=== PATIENT | male | born 1945 | race Caucasian/White ===

== ENCOUNTER 2022-02-02 01:27 | Day surgery (SDC) | payer MEDICARE, SELFPAY ==
[2022-01-24 15:36] VITALS: BMI 26.5
--- NOTE | 2022-02-01 16:15 | PM.HPGS ---
History of Present Illness History of Present Illness Consent: Risks, benefits, and alternatives have been discussed and questions answered. Patient agrees to proceed with procedure. Chief complaint: hx of colon polyps Narrative: Jorge Bonilla is a 76 year old male referred for colon cancer screening. His last colonoscopy was 10 years ago. Review of Systems Review of Systems: All systems reviewed & are unremarkable except as noted in HPI and below PMFSH Social History Social History Smoking status: Never smoker Alcohol intake: current Substance use: never Substance use type: does not use Living arrangements: with family Spiritual care concerns: No Meds Home Medications and Allergies Home Medications Medication Instructions Recorded Confirmed Type Adult Probiotic 1 tab-cap PO DAILY 01/24/22 01/24/22 History aspirin 81 mg tablet 81 mg PO DAILY 01/24/22 01/24/22 History atorvastatin 40 mg tablet 40 mg PO DAILY 01/24/22 01/24/22 History clopidogrel 75 mg tablet 75 mg PO DAILY 01/24/22 01/24/22 History diphenhydramine 25 2 tablet PO HS 01/24/22 01/24/22 History mg-acetaminophen 500 mg tablet (Acetaminophen PM) lisinopril 2.5 mg tablet 2.5 mg PO DAILY 01/24/22 01/24/22 History loratadine 10 mg tablet 10 mg PO DAILY 01/24/22 01/24/22 History meloxicam 15 mg tablet 15 mg PO DAILY 01/24/22 01/24/22 History metformin 500 mg tablet 500 mg PO BID 01/24/22 01/24/22 History metoprolol succinate 25 mg 25 mg PO DAILY 01/24/22 01/24/22 History tablet,extended release 24 hr pantoprazole 40 mg tablet,delayed 40 mg PO DAILY 01/24/22 01/24/22 History release pregabalin 75 mg capsule 75 mg PO BID 01/24/22 01/24/22 History tamsulosin 0.4 mg capsule 0.4 mg PO HS 01/24/22 01/24/22 History tramadol 50 mg tablet 50 mg PO BID PRN Pain 01/24/22 01/24/22 History Allergies Allergy/AdvReac Type Severity Reaction Status Date / Time No Known Allergies Allergy Verified 02/02/22 06:50 Exam Resp: Auscultation: clear to auscultation bilaterally Cardio: Rate: regular rate Rhythm: regular rhythm GI: GI Palp: Yes Soft to palpation and No Tenderness to palpation present (GI) Assessment and Plan Assessment and plan (1) Colon cancer screening: Code(s): Z12.11 - Encounter for screening for malignant neoplasm of colon Status: Acute Assessment and Plan: Colonoscopy with possible biopsy or polypectomy or cautery or injection of substances.
[2022-02-02 06:51] VITALS: BP 135/57; PULSE 82; RESP 18; TEMP 36.1; O2SAT 99; BMI 26.6
[2022-02-02] MEDS: LACTATED RINGERS 1,000 ML 150 ML IV CONT (07:06)
[2022-02-02 07:10] LABS: Glucose Point of Care 116 mg/dl (65-105)
--- NOTE | 2022-02-02 07:43 | WPDANESEPPF ---
Anes - Initial Pre Proc Eval Procedure: Operation Date: 02/02/22 08:00 Proposed Procedures p Screening Colonoscopy - Oseas Sheridan MD Date/Time: 02/02/22 07:43 Surgeon: Oseas Sheridan MD Pre Op Diagnosis: hx of colon polyps Patient Data Age: 76 Gender: M Height: 1.78 m Weight: 84.2 kg Last Vital Signs Temp 97 F L 02/02/22 06:51 Pulse 82 02/02/22 06:51 Resp 18 02/02/22 06:51 BP 135/57 L 02/02/22 06:51 Pulse Ox 99 02/02/22 06:51 O2 Del Method Room Air 02/02/22 06:51 Allergies Allergy/AdvReac Type Severity Reaction Status Date / Time No Known Allergies Allergy Verified 02/02/22 06:50 Home Medications Medication Instructions Recorded Confirmed Type Adult Probiotic 1 tab-cap PO DAILY 01/24/22 01/24/22 History aspirin 81 mg tablet 81 mg PO DAILY 01/24/22 01/24/22 History atorvastatin 40 mg tablet 40 mg PO DAILY 01/24/22 01/24/22 History clopidogrel 75 mg tablet 75 mg PO DAILY 01/24/22 01/24/22 History diphenhydramine 25 2 tablet PO HS 01/24/22 01/24/22 History mg-acetaminophen 500 mg tablet (Acetaminophen PM) lisinopril 2.5 mg tablet 2.5 mg PO DAILY 01/24/22 01/24/22 History loratadine 10 mg tablet 10 mg PO DAILY 01/24/22 01/24/22 History meloxicam 15 mg tablet 15 mg PO DAILY 01/24/22 01/24/22 History metformin 500 mg tablet 500 mg PO BID 01/24/22 01/24/22 History metoprolol succinate 25 mg 25 mg PO DAILY 01/24/22 01/24/22 History tablet,extended release 24 hr pantoprazole 40 mg tablet,delayed 40 mg PO DAILY 01/24/22 01/24/22 History release pregabalin 75 mg capsule 75 mg PO BID 01/24/22 01/24/22 History tamsulosin 0.4 mg capsule 0.4 mg PO HS 01/24/22 01/24/22 History tramadol 50 mg tablet 50 mg PO BID PRN Pain 01/24/22 01/24/22 History Laboratory Tests 02/02/22 07:05 POC Capillary Glucose 116 mg/dl H mg/dl (65-105) Patient hx anesthesia problems: none Family hx anesthesia problems: none Results Review: All pre-operative results and documents have been reviewed as part of the pre-operative evaluation. [facility] Social History Social History Smoking status: Never smoker Alcohol intake: current Substance use: never Substance use type: does not use Living arrangements: with family Spiritual care concerns: No Anes - Eval Final PreProcedure Day of Procedure 02/02/22 07:43 Patient weight: normal Heart: regular rate and rhythm Lungs: clear to auscultation Airway: Mallampati scale class II Neurological: alert and oriented Last oral intake: >/= 8 hours ASA classification: III Emergent: no Anesthetic plan: proceed Anesthesia type and monitoring: general GIVS and standard monitoring Results Review: All pre-operative results and documents have been reviewed as part of the pre-operative evaluation. Informed Consent: The patient's anesthetic plan and its attendant risks and benefits were discussed with the patient/family/POA. Questions were solicited and answers provided to the satisfaction of the patient/family/POA.
[2022-02-02 08:13] VITALS: BP 102/57; PULSE 78; RESP 22; O2SAT 99
[2022-02-02 08:23] VITALS: BP 114/68; PULSE 65; RESP 16; O2SAT 99
[2022-02-02 08:33] VITALS: BP 110/68; PULSE 69; RESP 16; O2SAT 100
== END 2022-02-02 08:52 | disposition home or self-care (01) ==
PROVIDERS: PCP Nurse Practitioner Family; Visit Provider Internal Medicine Gastroenterology
PROC: 0DJD8ZZ Inspection of Lower Intestinal Tract, Via Natural or Artificial Opening Endoscopic (ICD-10-PCS; CPT 45378; principal; 2022-02-02 08:00)
DX: Z12.11 Encounter for screening for malignant neoplasm of colon (principal); K62.1 Rectal polyp; K57.30 Diverticulosis of large intestine without perforation or abscess without bleeding; Z79.899 Other long term (current) drug therapy
CPT/HCPCS: 45380; 82948; 88305; J2704; J7120

== ENCOUNTER 2024-09-02 15:35 | Emergency (ER) | payer MEDICARE, SELFPAY ==
[2024-09-02] VITALS (12 sets, daily range): BP systolic 119–138; BP diastolic 57–91; PULSE 70–84; RESP 10–18; TEMP 36.8; O2SAT 96–100
--- NOTE | ~2024-09-02 | CT_ITS ---
CLINICAL INDICATION: Left lower quadrant tenderness COMPARISON: None. TECHNIQUE: Multiple contiguous axial images of the abdomen and pelvis were performed following the ad ministration of with 100 mL Omnipaque-350 intravenous contrast The dose-length product (DLP) was 631.89 mGy-cm. Automated exposure control and iterative reconstruction technique were employed. FINDINGS/OBSERVATIONS: Visualized lower thorax: The bilateral lung bases are clear. The heart is of normal size, without pericardial effusion. Small hiatal hernia is present. Liver: The liver demonstrates homogeneous enhancement and is not enlarged. Gallbladder and biliary system: The gallbladder is surgically absent. Pancreas: The pancreas enhances homogeneously without ductal dilatation. Spleen: The spleen enhances homogeneously and is not enlarged. Kidneys: The bilateral kidneys enhance symmetrically without hydronephrosis or renal calculi. Adrenal glands: Unremarkable. Gastrointestinal tract: Colonic diverticulosis without significant surrounding inflammatory change. Appendix: The appendix is not definitively visualized. However, no pericecal inflammatory change is identified suggest the presence of acute appendicitis. Vasculature: Unremarkable. Lymph nodes: No pathologically enlarged or morphologically suspicious lymph nodes within the retroperitoneum or at the root of the mesentery. Pelvic structures: The bladder is distended, and otherwise unremarkable. The prostate gland is minimally enlarged. Body wall and musculoskeletal: Small complex fat-containing umbilical hernia. Fat-containing left inguinal hernia. Age-appropriate degenerative disease within the lumbar spine. IMPRESSION: Fat-containing left inguinal hernia. Complex fat-containing umbilical hernia. Otherwise, unremarkable CT examination of the abdomen and pelvis, as detailed above. Reviewed, dictated and finalized at location A. IMPRESSION: Fat-containing left inguinal hernia. Complex fat-containing umbilical hernia. Otherwise, unremarkable CT examination of the abdomen and pelvis, as detailed nancy vasquez.
--- NOTE | 2024-09-02 16:54 | ED_ITS ---
HPI - Abdominal Pain General Chief Complaint: Abdominal Pain <NITA Francis Last Filed: 09/03/24 09:35> Stated Complaint: Abd pain-poss Pancreatitis flare <NITA Francis Last Filed: 09/03/24 09:35> Time Seen by Provider: 09/02/24 16:54 <NITA Francis Last Filed: 09/03/24 09:35> Focused HPI: This is a 79 year old male that presents to the ER for possible pancreatitis flare. Reports he has had symptoms over the last week. Reports epigastric pain, previous history of same. Reports some diarrhea. Denies fever, shortness of breath, vomiting. GENERAL: Well-appearing, well-nourished, and in no acute distress. HEAD: Normocephalic, atraumatic. CHEST: Clear to auscultation. ?No respiratory distress. HEART: Regular rate and rhythm.? NEURO: ?Alert and oriented x3. Patient screened in triage and initial orders placed.? ?Additional care and disposition to be based upon?diagnostic testing and treatment. <Renée Julien PA-C - Last Filed: 09/03/24 09:35> Focused HPI: This is a 79 year old male that presents to the ER for possible pancreatitis flare. Reports he has had symptoms over the last week. Reports epigastric pain, previous history of same. Reports some diarrhea. Denies fever, shortness of breath, vomiting. GENERAL: Well-appearing, well-nourished, and in no acute distress. HEAD: Normocephalic, atraumatic. CHEST: Clear to auscultation. ?No respiratory distress. HEART: Regular rate and rhythm.? NEURO: ?Alert and oriented x3. Patient screened in triage and initial orders placed.? ?Additional care and disposition to be based upon?diagnostic testing and treatment. <NITA Woods Last Filed: 09/02/24 19:41> Source: patient <NITA Woods Last Filed: 09/02/24 19:41> Mode of arrival: ambulatory <NITA Woods Last Filed: 09/02/24 19:41> Limitations: no limitations <Sarah Platt PA-C - Last Filed: 09/02/24 19:41> History of Present Illness HPI narrative: Agree with above HPI. States pain seem to be improved today. Reports pain is somewhat worse with movement, denies worsening with eating. Patient does not know why he has had pancreatitis in the past. Denies history of EtOH use. History of cholecystectomy. Denies CP/SOB. <Sarah Platt PA-C - Last Filed: 09/02/24 19:41> Related Data Home Medications: Home Medications ?Medication ?Instructions ?Recorded ?Confirmed ?Last Taken ?Type Adult Probiotic 1 tab-cap PO DAILY 01/24/22 01/24/22 Unknown History aspirin 81 mg tablet 81 mg PO DAILY 01/24/22 01/24/22 Unknown History atorvastatin 40 mg tablet 40 mg PO DAILY 01/24/22 01/24/22 Unknown History clopidogrel 75 mg tablet 75 mg PO DAILY 01/24/22 01/24/22 Unknown History diphenhydramine 25 2 tablet PO HS 01/24/22 01/24/22 Unknown History mg-acetaminophen 500 mg tablet (Acetaminophen PM) lisinopril 2.5 mg tablet 2.5 mg PO DAILY 01/24/22 01/24/22 Unknown History loratadine 10 mg tablet 10 mg PO DAILY 01/24/22 01/24/22 Unknown History meloxicam 15 mg tablet 15 mg PO DAILY 01/24/22 01/24/22 Unknown History metformin 500 mg tablet 500 mg PO BID 01/24/22 01/24/22 Unknown History metoprolol succinate 25 mg 25 mg PO DAILY 01/24/22 01/24/22 Unknown History tablet,extended release 24 hr pantoprazole 40 mg tablet,delayed 40 mg PO DAILY 01/24/22 01/24/22 Unknown History release pregabalin 75 mg capsule 75 mg PO BID 01/24/22 01/24/22 Unknown History tamsulosin 0.4 mg capsule 0.4 mg PO HS 01/24/22 01/24/22 Unknown History tramadol 50 mg tablet 50 mg PO BID PRN Pain 01/24/22 01/24/22 Unknown History <Renée Julien PA-C - Last Filed: 09/03/24 09:35> Allergies/Adverse Reactions: Allergies Allergy/AdvReac Type Severity Reaction Status Date / Time No Known Allergies Allergy Verified 09/02/24 15:36 <Renée Julien PA-C - Last Filed: 09/03/24 09:35> Review of Systems 2 Review of Systems: All systems reviewed & are unremarkable except as noted in HPI. <Sarah Platt PA-C - Last Filed: 09/02/24 19:41> All systems reviewed & are unremarkable except as noted in HPI and below < Sarah Platt PA-C - Last Filed: 09/02/24 19:41> PMFSH Past Medical History Medical History: Medical History History of hyperlipidemia History of hypertension <Renée Julien PA-C - Last Filed: 09/03/24 09:35> Social History Social History: Social History Smoking status: Never smoker Alcohol intake: current Substance use: never Substance use type: does not use Living arrangements: with family Spiritual care concerns: No <Renée Julien PA-C - Last Filed: 09/03/24 09:35> Exam 2 Narrative: GENERAL: Elderly but well appearing, well-nourished, non-toxic, in no acute distress. HEAD: Normocephalic, atraumatic. RESPIRATORY: Airway patent, respirations nonlabored. Clear to auscultation bilaterally, no rales, rhonchi, wheezing. CARDIOVASCULAR: Regular rate and rhythm without murmurs, rubs, or gallops. ABDOMINAL: Soft, mild TTP in LLQ/L mid abdomen, nondistended. Normoactive BS. MUSCULOSKELETAL: Moves all extremities. No gross deformities. SKIN: Warm, dry, normal color. NEURO: A&O X3. Speech clear. Cranial nerves II-XII grossly intact. Steady gait. No ataxic movements. PSYCHIATRIC: Appropriate mood and affect. Normal interaction. <Sarah Platt PA-C - Last Filed: 09/02/24 19:41> Course Vital Signs Vital signs: Vital Signs Temperature 98.2 F 09/02/24 15:55 Pulse Rate 84 09/02/24 15:55 Respiratory Rate 16 09/02/24 15:55 Blood Pressure 122/64 09/02/24 15:55 Pulse Oximetry 96 09/02/24 15:55 Oxygen Delivery Room Air 09/02/24 15:55 Temperature 98.2 F 09/02/24 15:55 Pulse Rate 78 09/02/24 20:15 Respiratory Rate 16 09/02/24 20:15 Blood Pressure 119/61 09/02/24 20:15 Pulse Oximetry 97 09/02/24 20:15 Oxygen Delivery Room Air 09/02/24 15:55 <Renée Julien PA-C - Last Filed: 09/03/24 09:35> Vital Signs Temperature 98.2 F 09/02/24 15:55 Pulse Rate 84 09/02/24 15:55 Respiratory Rate 16 09/02/24 15:55 Blood Pressure 122/64 09/02/24 15:55 Pulse Oximetry 96 09/02/24 15:55 Oxygen Delivery Room Air 09/02/24 15:55 Temperature 98.2 F 09/02/24 15:55 Pulse Rate 78 09/02/24 20:15 Respiratory Rate 16 09/02/24 20:15 Blood Pressure 119/61 09/02/24 20:15 Pulse Oximetry 97 09/02/24 20:15 Oxygen Delivery Room Air 09/02/24 15:55 <Sarah Platt PA-C - Last Filed: 09/02/24 19:41> MDM - Abdominal Pain MDM Narrative Medical decision making narrative: Patient presented to ED with mid abdominal pain over the past 1 week, history of pancreatitis. Concerned he was having a recurrent episode of pancreatitis. Denying N/V, pain related to eating, CP, SOB. States pain is improved today, but he contacted his primary care doctor and was referred to the ED for further evaluation. Vital signs are stable. Patient is in no acute distress. Afebrile here. Cbc without leukocytosis. Hemoglobin 12.3. No records to compare to. CMP with anion gap of 13, creatinine 1.34. No records to compare to. LFTs within normal range. Lipase within normal range. UA is clear. No ketones. EKG with incomplete right bundle, no concerning ST changes. Troponin is undetectable. CT of abdomen/pelvis was obtained and showing uncomplicated L inguinal/umbilical hernia w/o any other acute findings. No evidence of strangulation. Both are fat containing, soft, reproducible on exam. Discussed lab and imaging findings with patient. He has remained stable throughout ED stay. Has not required anything for pain. Denying significant ongoing pain. Feel he is safe for discharge home at this time with close outpatient follow-up. Patient takes tramadol at home for chronic pain, advised to continue this/Tylenol as needed for pain. Recommended f/u with PCP for further eval, given strict return precautions. Patient is in agreement this plan. He feels comfortable going home. Discharged in stable condition. <Sarah Platt PA-C - Last Filed: 09/02/24 19:41> Medical Records Attestation: I reviewed the patient's medical records. <NITA Woods Last Filed: 09/02/24 19:41> Lab Data Attestation: I reviewed the patient's lab results. <Sarah Platt PA-C - Last Filed: 09/02/24 19:41> Result diagrams: 09/02/24 17:17 09/02/24 17:17 <Renée Julien PA-C - Last Filed: 09/03/24 09:35> Labs: Lab Results 09/02/24 09/02/24 Range/Units 17:13 17:17 WBC 9.0 (4.5-10.0) K/mm3 RBC 4.48 L (4.6-6.20) M/mm3 Hgb 12.3 L (14.0-18.0) g/dL Hct 38.3 L (42.0-52.0) % MCV 85.5 (80-100) fl MCH 27.5 (26-34) pg MCHC 32.1 (32-36) g/dl RDW 13.5 (11.5-14.5) % Plt Count 351 (150-375) k/mm3 MPV 10.1 (7.4-10.4) fl Immature Gran % (Auto) 0.6 H (0-0.5) % Neut % (Auto) 64.9 (45.5-73.1) % Lymph % (Auto) 18.1 L (18.3-44.2) % [place] % (Auto) 7.7 (2.6-8.5) % Eos % (Auto) 7.7 H (0-4.4) % Baso % (Auto) 1.0 (0.2-1.2) % Lymph # (Auto) 1.63 (0.9-3.2) K/mm3 [place] # (Auto) 0.7 H (0.1-0.6) K/mm3 Eos # (Auto) 0.7 H (0-0.3) K/mm3 Baso # (Auto) 0.1 (0.0-0.1) K/mm3 Abs Immat Gran (auto) 0.05 H (0.00-0.031) K/mm3 Absolute Neuts (auto) 5.9 (1.3-6.7) K/mm3 Absolute Nucleated RBC 0.000 (0.0-0.012) K/mm3 Nucleated RBC % 0.0 (0.0-0.2) % Sodium 137 (137-145) mmol/L Potassium 4.4 (3.4-5.0) mmol/L Chloride 98 (98-107) mmol/L Carbon Dioxide 26 (22-30) mmol/L Anion Gap 13 H (4-12) mmol/L BUN 16 (9-20) mg/dL Creatinine 1.34 H (0.7-1.3) mg/dL Estim Creat Clear Calc 43 ml/min Estimated GFR 52 L (59 - ) Glucose 98 (65-110) mg/dL Calcium 9.2 (8.4-10.2) mg/dL Total Bilirubin 0.4 (0.2-1.3) mg/dL AST 28 (17-59) U/L ALT 34 (6-50) U/L Alkaline Phosphatase 121 (38-126) U/L Troponin I < 0.012 (0.000-0.034) ng/mL Total Protein 8.0 (6.3-8.2) g/dL Albumin 4.5 (3.5-5.1) g/dL Lipase 182 (23-300) U/L Urine Color Yellow (Yellow) Urine Appearance Clear (Clear) Urine pH 5.5 (5.0-9.0) Ur Specific [place] 1.009 (1.001-1.035) Urine Protein Negative (Negative) mg/dL Urine Glucose (UA) Negative (Negative) mg/dL Urine Ketones Negative (Negative) mg/dL Ur Blood (Man) Negative (Negative) Urine Nitrate Negative (Negative) Urine Bilirubin Negative (Negative) Urine Urobilinogen 1.0 (<2.0) mg/dL Leukocyte Esterase Rfl Negative (Negative) [facility] <Renée Julien PA-C - Last Filed: 09/03/24 09:35> Lab Results 09/02/24 09/02/24 Range/Units 17:13 17:17 WBC 9.0 (4.5-10.0) K/mm3 RBC 4.48 L (4.6-6.20) M/mm3 Hgb 12.3 L (14.0-18.0) g/dL Hct 38.3 L (42.0-52.0) % MCV 85.5 (80-100) fl MCH 27.5 (26-34) pg MCHC 32.1 (32-36) g/dl RDW 13.5 (11.5-14.5) % Plt Count 351 (150-375) k/mm3 MPV 10.1 (7.4-10.4) fl Immature Gran % (Auto) 0.6 H (0-0.5) % Neut % (Auto) 64.9 (45.5-73.1) % Lymph % (Auto) 18.1 L (18.3-44.2) % [place] % (Auto) 7.7 (2.6-8.5) % Eos % (Auto) 7.7 H (0-4.4) % Baso % (Auto) 1.0 (0.2-1.2) % Lymph # (Auto) 1.63 (0.9-3.2) K/mm3 [place] # (Auto) 0.7 H (0.1-0.6) K/mm3 Eos # (Auto) 0.7 H (0-0.3) K/mm3 Baso # (Auto) 0.1 (0.0-0.1) K/mm3 Abs Immat Gran (auto) 0.05 H (0.00-0.031) K/mm3 Absolute Neuts (auto) 5.9 (1.3-6.7) K/mm3 Absolute Nucleated RBC 0.000 (0.0-0.012) K/mm3 Nucleated RBC % 0.0 (0.0-0.2) % Sodium 137 (137-145) mmol/L Potassium 4.4 (3.4-5.0) mmol/L Chloride 98 (98-107) mmol/L Carbon Dioxide 26 (22-30) mmol/L Anion Gap 13 H (4-12) mmol/L BUN 16 (9-20) mg/dL Creatinine 1.34 H (0.7-1.3) mg/dL Estim Creat Clear Calc 43 ml/min Estimated GFR 52 L (59 - ) Glucose 98 (65-110) mg/dL Calcium 9.2 (8.4-10.2) mg/dL Total Bilirubin 0.4 (0.2-1.3) mg/dL AST 28 (17-59) U/L ALT 34 (6-50) U/L Alkaline Phosphatase 121 (38-126) U/L Troponin I < 0.012 (0.000-0.034) ng/mL Total Protein 8.0 (6.3-8.2) g/dL Albumin 4.5 (3.5-5.1) g/dL Lipase 182 (23-300) U/L Urine Color Yellow (Yellow) Urine Appearance Clear (Clear) Urine pH 5.5 (5.0-9.0) Ur Specific [place] 1.009 (1.001-1.035) Urine Protein Negative (Negative) mg/dL Urine Glucose (UA) Negative (Negative) mg/dL Urine Ketones Negative (Negative) mg/dL Ur Blood (Man) Negative (Negative) Urine Nitrate Negative (Negative) Urine Bilirubin Negative (Negative) Urine Urobilinogen 1.0 (<2.0) mg/dL Leukocyte Esterase Rfl Negative (Negative) [facility] <Sarah Platt PA-C - Last Filed: 09/02/24 19:41> Imaging Data Attestation: I personally reviewed and interpreted this imaging study as follows: < Sarah Platt PA-C - Last Filed: 09/02/24 19:41> Radiologist's impression: ITS Impressions Abdomen/Pelvis CT 09/02/24 19:19 IMPRESSION: Fat-containing left inguinal hernia. Complex fat-containing umbilical hernia. Otherwise, unremarkable CT examination of the abdomen and pelvis, as detailed above. <NITA Francis Last Filed: 09/03/24 09:35> ITS Impressions Abdomen/Pelvis CT 09/02/24 19:19 IMPRESSION: Fat-containing left inguinal hernia. Complex fat-containing umbilical hernia. Otherwise, unremarkable CT examination of the abdomen and pelvis, as detailed above. <Sarah Platt PA-C - Last Filed: 09/02/24 19:41> ECG Data EKG #1: Attestation: I personally reviewed and interpreted this ECG as follows: <NITA Woods Last Filed: 09/02/24 19:41> ECG completion date: 09/02/24 <NITA Woods Last Filed: 09/02/24 19:41> ECG completion time: 17:23 <NITA Woods Last Filed: 09/02/24 19:41> normal rate (75), sinus rhythm, no ST changes and RBBB (incomplete) <NITA Woods Last Filed: 09/02/24 19:41> Critical Care Time Critical Care Time Critical Care Time: No <NITA Francis Last Filed: 09/03/24 09:35> Discharge Plan Discharge Clinical Impression: Abdominal pain Qualifiers: Abdominal location: epigastric Qualified Code(s): R10.13 - Epigastric pain <NITA Francis Last Filed: 09/03/24 09:35> Patient Disposition: Home <NITA Francis Last Filed: 09/03/24 09:35> Condition: Stable <NITA Francis Last Filed: 09/03/24 09:35> Instructions: Antibiotic Form, Clear Liquid Diet (ED), Abdominal Pain (ED) <NITA Francis Last Filed: 09/03/24 09:35> Additional Instructions: Your workup here was reassuring. There was no evidence of pancreatitis. Continue Tylenol, your home tramadol as needed for pain. Follow-up with your primary care doctor for further evaluation. Return to the ED if you experience worsening or severe pain, unable to keep down food or drink, rectal bleeding, dark black stools, persistent fevers, significant constipation, or any other symptoms of concern. <Renée Julien PA-C - Last Filed: 09/03/24 09:35> Patient Language: Faroese <Renée Julien PA-C - Last Filed: 09/03/24 09:35> Prescriptions: No Action atorvastatin 40 mg tablet 40 mg PO DAILY meloxicam 15 mg tablet 15 mg PO DAILY clopidogrel 75 mg tablet 75 mg PO DAILY tramadol 50 mg tablet 50 mg PO BID PRN (Reason: Pain) tamsulosin 0.4 mg Capsule 0.4 mg PO HS pantoprazole 40 mg tablet,delayed release (DR/EC) 40 mg PO DAILY aspirin 81 mg Tablet 81 mg PO DAILY metoprolol succinate 25 mg tablet extended release 24 hr 25 mg PO DAILY lisinopril 2.5 mg tablet 2.5 mg PO DAILY pregabalin 75 mg capsule 75 mg PO BID Adult Probiotic 1 tab-cap PO DAILY diphenhydramine-acetaminophen [Acetaminophen PM] 25-500 mg Tablet 2 tablet PO HS loratadine 10 mg Tablet 10 mg PO DAILY metformin 500 mg tablet 500 mg PO BID <Renée Julien PA-C - Last Filed: 09/03/24 09:35> Follow-up/Referrals: Gina Isaac APRN [Advanced Practice Nurse] - <Renée Julien PA-C - Last Filed: 09/03/24 09:35> Time of Disposition: 19:37 <Renée Julien PA-C - Last Filed: 09/03/24 09:35> 19:37 <Sarah Platt PA-C - Last Filed: 09/02/24 19:41>
--- NOTE | 2024-09-02 16:55 | ECG_ITS ---
Test Date: 2024-09-02 17:23:31 Measurements Intervals [place] Rate: 75 P: 50 DC: 165 QRS: -6 QRSD: 108 T: 24 QT: 348 QTc: 390 Interpretive Statements SINUS RHYTHM INCOMPLETE RIGHT BUNDLE BRANCH BLOCK BASELINE ARTIFACT- I, II, III, AVR BORDERLINE ECG No previous ECG available for comparison Electronically Signed On 09-02-2024 19:30:42 CDT by Shaun Osullivan D.O.
[2024-09-02 17:27] LABS: Basophils Absolute Auto 0.1 K/mm3 (0.0-0.1); Eosinophils Absolute Auto 0.7 K/mm3 (0-0.3); Eosinophils Percent Auto 7.7 % (0-4.4); Hematocrit 38.3 % (42.0-52.0); Hemoglobin 12.3 g/dL (14.0-18.0); Immature Granulocyte Absolute 0.05 K/mm3 (0.00-0.031); Immature Granulocyte Percent A 0.6 % (0-0.5); Lymphocytes Absolute Auto 1.63 K/mm3 (0.9-3.2); Lymphocytes Percent Auto 18.1 % (18.3-44.2); Mean Corpuscular HGB Conc 32.1 g/dl (32-36); Mean Corpuscular Hemoglobin 27.5 pg (26-34); Mean Corpuscular Volume 85.5 fl (80-100); Mean Platelet Volume 10.1 fl (7.4-10.4); Monocytes Absolute Auto 0.7 K/mm3 (0.1-0.6); Monocytes Percent Auto 7.7 % (2.6-8.5); Neutrophils Absolute Auto 5.9 K/mm3 (1.3-6.7); Neutrophils Percent Auto 64.9 % (45.5-73.1); Platelet Count Result 351 k/mm3 (150-375); Red Blood Count 4.48 M/mm3 (4.6-6.20); Red Cell Distribution Width 13.5 % (11.5-14.5)
[2024-09-02 17:30] LABS: Add Urine Microscopic? NO; Appearance Urine Clear (Clear); Bilirubin Urine Negative (Negative); Blood Urine Negative (Negative); Color Urine Yellow (Yellow); Glucose Urine UA Negative (Negative); Ketones Urine Negative (Negative); Leukocyte Esterase Ur Negative LEU/UL (Negative); Nitrate Urine Negative (Negative); Protein Urine Negative (Negative); Specific Grav Ur 1.009 (1.001-1.035); pH Urine 5.5 (5.0-9.0)
--- OUTSIDE RECORDS SUMMARY | 2024-09-02 17:36 | XMS_ITS | CONTINUITY OF CARE DOCUMENT ---
Author Name tamara mcdonald Address Unknown Organization [facility] Address [address] [facility] [address] [place] [address] Phone [phone] Care Team Providers Care Line Tester Name Role Phone Jalil PRATT, Jose Miguel Delarosa Unavailable [phone] Betty Causey MD Unavailable CORWIN BRYAN MD Unavailable [phone] PROBLEMS Condition Status Date Provider Notes Shortness of breath active Hema Gates RN Pain in limb active Steven Nicole EKG active Jose Miguel Jimenes MD CAD active Jose Miguel Jimenes MD Sleep apnea active Jose Miguel Jimenes MD Hypertension active Jose Miguel Jimenes MD Hyperlipidemia active Jose Miguel Jimenes MD Hx of NSTEMI active Jose Miguel Jimenes MD Dizziness active Jose Miguel Jimenes MD Prediabetes active Jose Miguel Jimenes MD Covid vaccine Moderna active Sunita Mendoza Acute pancreatitis with unin fected necrosis, unspecified active Jose Miguel Jimenes MD Preop cardiovasc. examination active Dariusz Jimenes MD ENCOUNTERS Date Type Provider Location Encounter Diag nosis 5 - 7 In-person encounter Office Visit Jose Miguel Jimenes MD [facility] 4 - 4 In-person encounter Office Visit Jose Miguel Jimenes MD [facility] 2 - 2 In-person encounter Office Visit Jose Miguel Jimenes MD [facility] 5 - 5 In-person encounter Office Visit Jose Miguel Jimenes MD [facility] 3 - 3 In-person encounter Office Visit Jose Miguel Jimenes MD [facility] 7 - 7 In-person encounter Office Visit Jose Migeul Jimenes MD [facility] 6 - 3 In-person encounter Office Visit Jose Miguel Jimenes MD [facility] 2 - 7 In-person encounter Office Visit Jose Miguel Jimenes MD [facility] Acute pancreatitis with uninfected necrosis, unspecifiedPreop cardiovasc. examination 1 - 1 In-person encounter Office Visit Jose Miguel Jimenes MD [facility] Covid vaccine Moderna 9 - 9 In-person encounter Office Visit Jose Miguel Jimenes MD [facility] 0 - 6 In-person encounter Office Visit Jose Miguel Jimenes MD [facility] Prediabetes 2 - 3 In-person encounter Office Visit Jose Miguel Jimenes MD [facility] Dizziness 7 - 7 In-person encounter Office Visit Jose Miguel Jimenes MD [facility] Hx of NSTEMI 2 - 3 In-person encounter Office Visit Jose Miguel Jimenes MD [facility] EKGCADSleep apneaHypertensionHyperlipidemia VITAL SIGNS Date Observation Value Provider Body Mass Index (Ratio) 27.75 kg/m2 Freeman Boyle blood pressure, diastolic 65 mm[Hg] Radha Rodriguez blood pressure, systolic 118 mm[Hg] Yolanda polk Rodriguez oxygen saturation, oximetry 96 % Radha Rodriguez pulse rate 65 /min Radha Rodriguez respiratory rate E&M 12 /min Radha [place] weight E&M 199 [lb_av] Radha Rodriguez height E&M 71 [in_i] Radha [place] blood pressure, cuff size regular Radha ponce [place] Body Mass Index (Ratio) 26.50 kg/m2 Daryn Jimenes MD blood pressure, diastolic 66 mm[Hg] Li nkLogic blood pressure, systolic 114 mm[Hg] Lazara blood pressure, cuff size regular Ke rri Gruenenfdavid blood pressure, diastolic 66 mm[Hg] Martin rri Gruenenfeld blood pressure, systolic 114 mm[Hg] Matthew Allen oxygen saturation, oximetry 95 % Whitley Hong respiratory rate E&M 12 /min Whitley shah pulse rate 69 /min Whitley [facility] weight E&M 190 [lb_av] Whitley [facility] height E&M 71 [in_i] Whitley [facility] Body Mass Index (Ratio) 25.94 kg/m2 Miky Clancy blood pressure, diastolic -1 mm[Hg] Li nkLogic blood pressure, systolic 129 mm[Hg] Lazara kLogic blood pressure, diastolic 65 mm[Hg] Ja rret blood pressure, systolic 129 mm[Hg] Jar ret pulse rate 70 /min David sevilla blood pressure, cuff size regular Ja rret oxygen saturation, oximetry 96 % David respiratory rate E&M 14 /min David weight E&M 186 [lb_av] David y height E&M 71 [in_i] David y Body Mass Index (Ratio) 26.92 kg/m2 Daryn Jimenes MD blood pressure, diastolic 90 mm[Hg] nkLog blood pressure, systolic 123 mm[Hg] [facility] blood pressure, cuff size regular Fa [facility] blood pressure, diastolic 90 mm[Hg] [facility] blood pressure, systolic 123 mm[Hg] [facility], oximetry 97 % [facility] respiratory rate E&M 16 /min Ankita Kristal [facility] pulse rate 73 /min [facility] weight E&M 193 [lb_av] [facility] height E&M 71 [in_i] [facility] Body Mass Index (Ratio) 27.33 kg/m2 Daryn Jimenes MD blood pressure, diastolic 63 mm[Hg] [facility], systolic 123 mm[Hg] Lazara og blood pressure, cuff size regular Milton rret blood pressure, diastolic 63 mm[Hg] Milton rret blood pressure, systolic 123 mm[Hg] Jar ret pulse rate 66 /min David y oxygen saturation, oximetry 98 % David respiratory rate E&M 12 /min David weight E&M 196 [lb_av] David y height E&M 71 [in_i] David y Body Mass Index (Ratio) 27.33 kg/m2 Daryn Jimenes MD blood pressure, diastolic 65 mm[Hg] [facility] Iglesia blood pressure, systolic 121 mm[Hg] Guadalupe peace Iglesia oxygen saturation, oximetry 96 % Kimmy Iglesia pulse rate 75 /min Kimmy Iglesia respiratory rate E&M 18 /min Kimmy Shy mo[place] weight E&M 196 [lb_av] Kimmy Ilgesia height E&M 71 [in_i] Kimmy Iglesia Body Mass Index (Ratio) 27.75 kg/m2 Daryn Jimenes MD blood pressure, cuff size large Ke rri Grueneglynn blood pressure, diastolic 69 mm[Hg] Ke rri Romieuenenfangella blood pressure, systolic 136 mm[Hg] Matthew ri Gely oxygen saturation, oximetry 98 % Whitley Gely respiratory rate E&M 16 /min Whitley G rochelleeneglynn pulse rate 68 /min Whitley Macho lder weight E&M 199 [lb_av] Whitley Gruenenfe lder height E&M 71 [in_i] Whitley Gruenenfe lder Body Mass Index (Ratio) 26.22 kg/m2 Daryn Jimenes MD blood pressure, diastolic 55 mm[Hg] Li nkLogic blood pressure, systolic 116 mm[Hg] Lazara kLogic blood pressure, cuff size large Ta bruce Van blood pressure, diastolic 55 mm[Hg] Ta bruce Van blood pressure, systolic 116 mm[Hg] Sandoval manish Van respiratory rate E&M 14 /min Jasmine Van oxygen saturation, oximetry 96 % [facility] pulse rate 73 /min [facility] weight E&M 188.0 [lb_av] [facility] height E&M 71 [in_i] [facility] Body Mass Index (Ratio) 28.87 kg/m2 Willie Mendoza blood pressure, diastolic 68 mm[Hg] Sa ra Schmid blood pressure, systolic 137 mm[Hg] Jaleesa a Schmid respiratory rate E&M 17 /min Rosalind Si ms oxygen saturation, oximetry 97 % Rosalind Schmid pulse rate 82 /min Rosalind Schmid blood pressure, cuff size regular Sa ra Schmid weight E&M 207 [lb_av] Rosalind Schmid height E&M 71 [in_i] Rosalind Schmid Body Mass Index (Ratio) 28.87 kg/m2 Daryn Jimenes MD blood pressure, cuff size large Ke rri Ankurneglynn blood pressure, diastolic 60 mm[Hg] Ke rri Romieuenenfeldashu blood pressure, systolic 122 mm[Hg] Ker ri Gely oxygen saturation, oximetry 97 % Whitley Hong respiratory rate E&M 14 /min Whitley shah pulse rate 72 /min Whitley Ankurnesang lder weight E&M 207 [lb_av] Whitley Romieuenenfe lder height E&M 71 [in_i] Whitley Gruenenfe lder Body Mass Index (Ratio) 28.31 kg/m2 Daryn Jimenes MD blood pressure, cuff size regular Cy laureano Carlson blood pressure, diastolic 64 mm[Hg] Cy laureano Carlson blood pressure, systolic 130 mm[Hg] Serenity Carlson oxygen saturation, oximetry 98 % Katerine Carlson pulse rate 78 /min Katerine lala respiratory rate E&M 16 /min Katerine Carlson weight E&M 203 [lb_av] Katerine Eyalbel l height E&M 71 [in_i] Katerine Eyalbel dai Body Mass Index (Ratio) 29.01 kg/m2 Daryn Jimenes MD blood pressure, diastolic 67 mm[Hg] Cy laureano Aldo blood pressure, systolic 122 mm[Hg] Serenity Carlson pulse rate 68 /min Katerine lala blood pressure, cuff size regular Cy laureano Carlson respiratory rate E&M 16 /min Katerine Carlson oxygen saturation, oximetry 96 % Katerine Carlson weight E&M 208 [lb_av] Katerine Birchbel dai height E&M 71 [in_i] Katerine Birchbel l Body Mass Index (Ratio) 28.31 kg/m2 Daryn Jimenes MD blood pressure, cuff size regular Cy laureano Carlson pulse rate 76 /min Katerine Birchbel dai respiratory rate E&M 16 /min Katerine Carlson oxygen saturation, oximetry 95 % Katerine Carlson blood pressure, diastolic 75 mm[Hg] Cy laureano Carslon blood pressure, systolic 127 mm[Hg] Serenity okeefe Carlson weight E&M 203 [lb_av] Katerine Eyalbel l height E&M 71 [in_i] Katerine Eyalbel l Body Mass Index (Ratio) 27.89 kg/m2 Daryn Jimenes MD blood pressure, resting No Tons estevez Juarez respiratory rate E&M 16 /min [facility] blood pressure, diastolic 73 mm[Hg] To [facility] blood pressure, systolic 143 mm[Hg] Ton [facility] oxygen saturation, oximetry 96 % [facility] pulse rate 86 /min [facility] weight E&M 200 [lb_av] [facility] height E&M 71 [in_i] [facility] temperature site temporal Laury Tank sley temperature E&M 97.5 [degF] [facility]ury [facility] [place] johana ALLERGIES Allergy Name Onset Date Reaction Criticality Status MORPHINE Low Criticality active RESULTS Date Observation Value Provider Reference Range Interpretation Location 0 B-type natriuretic peptide 10.3 pg/mL [facility] 0.0-100.0 0 hemoglobin A1C, blood, as % of total hemoglobin 6.0 % [facility] 4.8-5.6 High 0 lipoprotein, beta, serum, point, quantitative, calculated 63 mg/dL [facility] 0-99 0 HDL cholesterol, serum 31 mg/dL [facility] >39 Low 0 triglyceride, serum, random 183 mg/dL [facility] 0-149 High 0 cholesterol, serum 125 mg/dL [facility] [phone]/10/3 0 basophil count, absolute 0.1 x10E3/uL [facility] 0.0-0.2 0 Eosinophil Absolute Count 0.2 X10E3/UL [facility] 0.0-0.4 0 monocyte count, blood, automated 0.6 X10E3/UL [facility] 0.1-0.9 0 lymphocyte count, blood, automated 1.4 X10E3/UL [facility] 0.7-3.1 0 Absolute Neutrophils 4.5 X10E3/UL [facility] 1.4-7.0 0 basophils as percent of blood leukocytes 1 % [facility] Not Estab. 0 eosinophils as percent of blood leukocytes 3 % [facility] Not Estab. 0 monocytes as percent of blood leukocytes 9 % [facility] Not Estab. 0 lymphocytes as percent of blood leukocytes 21 % [facility] Not Estab. 0 neutrophils as percent of blood leukocytes 66 % [facility] Not Estab. 0 platelet count 224 X10E3/UL [facility] [phone]/10/3 0 red blood cell distribution width 13.2 % [facility] 11.6-15.4 0 mean corpuscular hemoglobin concentration, RBC 32.5 G/DL [facility] 31.5-35.7 0 mean corpuscular hemoglobin, RBC 27.0 pg [facility] 26.6-33.0 0 mean corpuscular volume, RBC 83 fL [facility] 79-97 0 hematocrit, blood 38.5 % [facility] 37.5-51.0 0 hemoglobin, blood 12.5 g/dL [facility] 13.0-17.7 Low 0 erythrocyte (RBC) count 4.63 X10E6/UL [facility] 4.14-5.80 0 leukocyte count, blood 6.7 X10E3/UL [facility] 3.4-10.8 0 alanine aminotransferase (SGPT), serum 19 1/L [facility] 0-44 0 aspartate aminotransferase (SGOT), serum 18 1/L [facility] 0-40 0 alkaline phosphatase, serum 150 1/L [facility] 44-121 High 0 bilirubin, serum, total 0.2 mg/dL [facility] 0.0-1.2 0 albumin/globulin ratio, serum 1.7 [facility] 1.2-2.2 0 globulin, serum 2.5 [facility] 1.5-4.5 0 albumin, serum 4.2 g/dL [facility] 3.7-4.7 0 protein, total, serum 6.7 g/dL [facility] 6.0-8.5 0 calcium, serum 8.8 mg/dL [facility] 8.6-10.2 0 carbon dioxide, venous blood 25 mmol/L [facility] 20-29 0 chloride, serum 103 mmol/L [facility] 96-106 0 potassium, serum 4.9 mmol/L [facility] 3.5-5.2 0 sodium, serum 140 mmol/L [facility] 428-399 0759/10/3 0 urea nitrogen/creatinine ratio, serum 18 [facility] 10-24 0 eGFR if 94 mL/min/{1 .73_m2} [facility] >59 0 eGFR if not 81 mL/min/{1 .73_m2} [facility] >59 0 creatinine, serum 0.93 mg/dL [facility] 0.76-1.27 0 urea nitrogen, blood 17 mg/dL [facility] 8-27 0 blood glucose, random 88 mg/dL [facility] 65-99 HISTORY OF MEDICATION USE Medication Status Instructions Dates Provider Indications Com ments lisinopril 2.5 mg tablet active TAKE 1 TABLET BY MOUTH EVERY DAY Bing Lewis lisinopril 2.5 mg tablet completed Take 1 tablet by mouth once a day [facility] 40 mg tablet active TAKE 1 TABLET BY MOUTH DAILY David [facility] clopidogrel 75 mg tablet active TAKE 1 TABLET BY MOUTH DAILY Jose Miguel Jimenes MD lisinopril 5 mg tablet completed TAKE 1 TABLET BY MOUTH EVERY DAY - Jose Miguel Jimenes MD metoprolol succinate 25 mg tablet extended release 24 hr active TAKE 1 TABLET BY MOUTH DAILY David Hurst lisinopril 2.5 mg tablet completed ONE TAB. DAILY - Jose Miguel Jimenes MD Toprol XL 25 mg tablet extended release 24 hr completed ONE TAB DAILY - Tia Mariza hydrocodone-bernardo taminophen 5-325 mg tablet active 1 tablet by mouth once a day [facility] #15, 2 days supply, Filled 07/09/2019 pantoprazole 40 mg tablet,delayed release (DR/EC) active 1 tablet by mouth once a day [facility] #90, 90 days supply, Filled 07/18/2019 tamsulosin 0.4 mg capsule active Take 1 capsule by mouth once a day [facility] #90, 90 days supply, Prescribed by SPENCER EDOUARD, Filled 08/09/2019 dutasteride 0.5 mg capsule active 1 tablet by mouth once a day [facility] #90, 90 days supply, Filled 08/17/2019 tramadol 50 mg tablet active 2 tablet by mouth once a day [facility] #60, 30 days supply, Filled 09/18/2019 gabapentin 300 mg capsule active 1 tablet by mouth three times a day [facility] #540, 90 days supply, Filled 08/17/2019 meloxicam 15 mg tablet active Take 1 tablet by mouth once a day as needed [facility] #90, 90 days supply, Prescribed by ELOISA SAMAYOA, Filled 09/23/2019 clopidogrel 75 mg tablet completed Take 1 tablet by mouth once a day - Say [facility] #30, 30 days supply, Prescribed by JULIÁN MCLEAN, Filled 10/03/2019 atorvastatin 40 mg tablet completed Take 1 tablet by mouth once a day - Chaz Kimt #30, 30 days supply, Prescribed by JULIÁN MCLEAN, Filled 10/03/2019 aspirin 81 mg tablet,delayed release (DR/EC) active Take 1 tablet by mouth once a day Say [facility] #30, 30 days supply, Prescribed by JULIÁN MCLEAN, Filled 10/03/2019 SOCIAL HISTORY Date Observation Value Provider smoking status Former smoker Jose Miguel sherman MD smoking status Former smoker Jose Miguel sherman MD smoking status Former smoker Jose Miguel sherman MD smoking status Former smoker Ankita Leo social history reviewed E&M revi ewed - no changes required Jose Miguel Jimenes MD social history E&M S moking History: Adriana zaidi is a former smoker. Jose Miguel Jimenes MD social history reviewed E&M revi ewed - no changes required Jose Miguel Jimenes MD smoking status Former smoker Kimmy Parekh social history E&M S moking History: Adriana zaidi is a former smoker. Jose Miguel Jimenes MD social history reviewed E&M revi ewed - no changes required Jose Miguel Jimenes MD smoking status Former smoker Whitley maki social history E&M S moking History: Adriana zaidi is a former smoker. Jose Miguel Jimenes MD social history reviewed E&M revi ewed - no changes required Jose Miguel Jimenes MD smoking status Former smoker Jasmine Tirado social history E&M S moking History: Adriana zaidi has never smoked. Jose Miguel Jimenes MD social history reviewed E&M revi ewed - no changes required Jose Miguel Jimenes MD smoking status Never smoker Rosalind Schmid social history E&M S moking History: Adriana zaidi has never smoked. Jose Miguel Jimenes MD social history reviewed E&M revi ewed - no changes required Jose Miguel Jimenes MD smoking status Never smoker Whitley Eva enriquez social history reviewed E&M revi ewed - no changes required Jose Miguel Jimenes MD social history E&M S moking History: Adriana zaidi has never smoked. Jose Miguel Jimenes MD smoking status Never smoker Katerine Lilia kline social history reviewed E&M revi ewed - no changes required Jose Miguel Jimenes MD social history E&M S moking History: Adriana zaidi has never smoked. Jose Miguel Jimenes MD smoking status Never smoker Katerine Lilia kline social history E&M S moking History: Adriana zaidi has never smoked. Jose Miguel Jimenes MD social history reviewed E&M revi ewed - no changes required Jose Miguel Jimenes MD smoking status Never smoker Katerine kline number of grandchildren Jose Miguel Estrada social history E&M S moking History: Adriana zaidi has never smoked. Brian Estrada social history reviewed E&M revi ewed - no changes required Brian Estrada smoking status Never smoker [facility] FUNCTIONAL STATUS Date Observation Value Provider HRA, CV Assess/Plan, Angina (inactive) Management Plan continue current therapy Jose Miguel Jimenes MD HRA, CV Assess/Plan, Angina (inactive) Management Plan continue current therapy Jose Miguel Jimenes MD HRA, CV Assess/Plan, Angina (inactive) Management Plan continue current therapy Jose Miguel Jimenes MD HRA, CV Assess/Plan, Angina (inactive) Management Plan continue current therapy Jose Miguel Jimenes MD HRA, CV Assess/Plan, Angina (inactive) Management Plan continue current therapy Jose Miguel Jimenes MD HRA, CV Assess/Plan, Angina (inactive) Management Plan continue current therapy Jose Miguel Jimenes MD HRA, CV Assess/Plan, Angina (inactive) Management Plan continue current therapy Jose Miguel Jimenes MD HRA, CV Assess/Plan, Angina (inactive) Management Plan continue current therapy Jose Miguel Jimenes MD HRA, CV Assess/Plan, Angina (inactive) Management Plan continue current therapy Jose Miguel Jimenes MD HRA, CV Assess/Plan, Angina (inactive) Management Plan continue current therapy Jose Miguel Jimenes MD HRA, CV Assess/Plan, Angina (inactive) Management Plan continue current therapy Jose Miguel Jimenes MD HRA, CV Assess/Plan, Angina (inactive) Management Plan continue current therapy Jose Miguel Jimenes MD HRA, CV Assess/Plan, Angina (inactive) Management Plan continue current therapy Jose Miguel Jimenes MD FAMILY HISTORY Family Member Condition Father Family History Unkno wn Mother Family History Unkno wn INSURANCE PROVIDERS Payer name Policy type / Coverage type Solon red libertarian ID [facility] [id number] [place] Medicare [id number] ADVANCE DIRECTIVES Name Date DISCUSSED - NO DECISION MADE TREATMENT PLAN Date Name Performer [id number],C, T he patient is using CPAP on a regular basis. The patient has been benefiting from therapy and should continue use. Jose Miguel Jimenes MD [id number],C,6.0 A1C WILL RECHECK Jose Miguel Jimenes MD [id number],C, H ad stents to RCA and LCX. Remaining on DAPT for 12 months. Currently remains on DAPT. Reviewed option of coming off of Plavix and staying on ASA alone. June 18, 2021 C ONCLUSIONS: 1 . Normal sinus rhythm. Nonspecific ST-T abnormality. 2 . Hypertensive response to exertion. 3 . Normal left ventricle size. 4 . Left Ventricular Ejection Fraction is 64 %. TID: 0.92. 5 . Abnormal perfusion imaging in the lateral apical wall with a severe perfusion defect and is not reversibile. No plans for cath he is asymptomatic and no ischemia noted. Jose Miguel Jimenes MD [id number],C, H is updated medication list for this problem includes: Atorvastatin 40 Mg Tablet (Atorvastatin) ..... Take 1 tablet by mouth daily H E IS HERE TO DISCUSS THE LPa AND QUALIFIES FOR OCEAN(a) STUDY AND WANTS TO ENROLL LPa WAS 221 HE HAS HAD STENTS TO HEART AND PRIOR NSTEMI Jose Miguel Jimenes MD [id number],C, B P today: 123/63 P rior BP: 121/65 (12/02/2022) Labs Reviewed: C reat: 0.93 (03/27/2021) C hol: 125 (03/27/2021) HDL: 31 (03/27/2021) His updated medication list for this problem includes: Lisinopril 2.5 Mg Tablet (Lisinopril) ..... Take 1 tablet by mouth every day Metoprolol Succinate 25 Mg Tablet Extended Release 24 Hr (Metoprolol succinate) ..... Take 1 tablet by mouth daily Aspirin 81 Mg Tablet,delayed Release (dr/ec) (Aspirin) ..... Take 1 tablet by mouth once a day Jose Miguel Jimenes MD [id number],C, H is updated medication list for this problem includes: Atorvastatin 40 Mg Tablet (Atorvastatin) ..... Take 1 tablet by mouth daily Jose Miguel Jimenes MD [id number],S,r eviewed RPM bps are well controlled at home and no new med rx. Jose Miguel Jimenes MD [id number],C, H ad stents to RCA and LCX. Remaining on DAPT for 12 months. Currently remains on DAPT. Reviewed option of coming off of Plavix and staying on ASA alone. June 18, 2021 C ONCLUSIONS: 1 . Normal sinus rhythm. Nonspecific ST-T abnormality. 2 . Hypertensive response to exertion. 3 . Normal left ventricle size. 4 . Left Ventricular Ejection Fraction is 64 %. TID: 0.92. 5 . Abnormal perfusion imaging in the lateral apical wall with a severe perfusion defect and is not reversibile. No plans for cath he is asymptomatic and no ischemia noted. Jose Miguel Jimenes MD [id number],B, Jose Miguel sherman MD [id number],C,C heck carotids L ikely related to orthostatic positional changes. Recommended Na+ liberation in diet. Jose Miguel Jimenes MD [id number],S,C heck carotids L ipid panel reviewed. Numbers are favorable. H is updated medication list for this problem includes: Atorvastatin Calcium 40 Mg Oral Tablet (Atorvastatin calcium) ..... Take one tablet daily Jose Miguel Jimenes MD [id number],C, H ad stents to RCA and LCX. Remaining on DAPT for 12 months. Currently remains on DAPT. Reviewed option of coming off of Plavix and staying on ASA alone. June 18, 2021 C ONCLUSIONS: 1 . Normal sinus rhythm. Nonspecific ST-T abnormality. 2 . Hypertensive response to exertion. 3 . Normal left ventricle size. 4 . Left Ventricular Ejection Fraction is 64 %. TID: 0.92. 5 . Abnormal perfusion imaging in the lateral apical wall with a severe perfusion defect and is not reversibile. No plans for cath he is asymptomatic and no ischemia noted. Jose Miguel Jimenes MD [id number],C,C urrently taking 2.5mg Lisinopril Discussion of benefits for remote patient monitoring took place. Patient gives consent for remote monitoring of physiologic parameters including, but not limited to, weight, blood pressure, pulse oximetry, respiratory flow rate. BP today: 136/69 P rior BP: 116/55 (12/17/2021) Labs Reviewed: C reat: 0.93 (03/27/2021) C hol: 125 (03/27/2021) HDL: 31 (03/27/2021) His updated medication list for this problem includes: Lisinopril 2.5 Mg Tablet (Lisinopril) ..... Take 1 tablet by mouth once a day Metoprolol Succinate 25 Mg Tablet Extended Release 24 Hr (Metoprolol succinate) ..... Take 1 tablet by mouth daily Aspirin 81 Mg Tablet,delayed Release (/ec) (Aspirin) ..... Take 1 tablet by mouth once a day Jose Miguel Jimenes MD [id number],SP parmjit on getting colonoscopy done Okay to come off plavix 3-5 days prior to colonoscopy. Dr Sheridan at [place] Jose Miguel Jimenes MD [id number],C, T he patient is using CPAP on a regular basis. The patient has been benefiting from therapy and should continue use. Jose Miguel Jimenes MD [id number],C,H ad Pancreatitis in 08/2021, check LFTs and Lipase. Jose Miguel Jimenes MD [id number],S, V accined planning on getting booster N ever got covid yet Jose Miguel Jimenes MD [id number],C, S tarted metformin Jose Miguel Jimenes MD [id number],C, H is updated medication list for this problem includes: Lisinopril 5 Mg Tablet (Lisinopril) ..... Take 1 tablet by mouth daily Aspirin 81 Mg Tablet,delayed Release (/ec) (Aspirin) ..... Take 1 tablet by mouth once a day Metoprolol Succinate 25 Mg Tablet Extended Release 24 Hr (Metoprolol succinate) ..... Take 1 tablet by mouth daily BP today: 116/55 P rior BP: 137/68 (06/18/2021) Labs Reviewed: C reat: 0.93 (03/27/2021) C hol: 125 (03/27/2021) HDL: 31 (03/27/2021) Jose Miguel Jimenes MD [id number],C, H ad stents to RCA and LCX. Remaining on DAPT for 12 months. Currently remains on DAPT. Reviewed option of coming off of Plavix and staying on ASA alone. June 18, 2021 C ONCLUSIONS: 1 . Normal sinus rhythm. Nonspecific ST-T abnormality. 2 . Hypertensive response to exertion. 3 . Normal left ventricle size. 4 . Left Ventricular Ejection Fraction is 64 %. TID: 0.92. 5 . Abnormal perfusion imaging in the lateral apical wall with a severe perfusion defect and is not reversibile. No plans for cath he is asymptomatic and no ischemia noted. Jose Miguel Jimenes MD [id number],C,I ncrease lisinopril to 5 had high BP during stress H is updated medication list for this problem includes: Aspirin 81 Mg Tablet,delayed Release (dr/ec) (Aspirin) ..... Take 1 tablet by mouth once a day Metoprolol Succinate 25 Mg Tablet Extended Release 24 Hr (Metoprolol succinate) ..... Take 1 tablet by mouth daily Lisinopril 2.5 Mg Tablet (Lisinopril) ..... Take 1 tablet by mouth daily Jose Miguel Jimenes MD [id number],C,V accined planning on getting booster Jose Miguel Jimenes MD [id number],C,Started metfo rmin Jose Miguel Jimenes MD [id number],C, T he patient is using CPAP on a regular basis. The patient has been benefiting from therapy and should continue use. Jose Miguel Jimenes MD [id number],C, H ad stents to RCA and LCX. Remaining on DAPT for 12 months. Currently remains on DAPT. Reviewed option of coming off of Plavix and staying on ASA alone. June 18, 2021 C ONCLUSIONS: 1 . Normal sinus rhythm. Nonspecific ST-T abnormality. 2 . Hypertensive response to exertion. 3 . Normal left ventricle size. 4 . Left Ventricular Ejection Fraction is 64 %. TID: 0.92. 5 . Abnormal perfusion imaging in the lateral apical wall with a severe perfusion defect and is not reversibile. No plans for cath he is asymptomatic and no ischemia noted. Jose Miguel Jimenes MD [id number],C, L ipid panel reviewed. Numbers are favorable. H is updated medication list for this problem includes: Atorvastatin Calcium 40 Mg Oral Tablet (Atorvastatin calcium) ..... Take one tablet daily Jose Miguel Jimenes MD [id number],C, H ad stents to RCA and LCX. Remaining on DAPT for 12 months. Currently remains on DAPT. Reviewed option of coming off of Plavix and staying on ASA alone. Jose Miguel Jimenes MD [id number],C, B P today: 122/60 P rior BP: 130/64 (09/25/2020) His updated medication list for this problem includes: Aspirin 81 Mg Tablet,delayed Release (/ec) (Aspirin) ..... Take 1 tablet by mouth once a day Metoprolol Succinate 25 Mg Tablet Extended Release 24 Hr (Metoprolol succinate) ..... Take 1 tablet by mouth daily Lisinopril 2.5 Mg Tablet (Lisinopril) ..... Take 1 tablet by mouth daily Jose Miguel Jimenes MD [id number],C, T he patient is using CPAP on a regular basis. The patient has been benefiting from therapy and should continue use. Jose Miguel Jimenes MD [id number],C, L LE great toe evulsed nail growing back. Saw podiatry. Had ANABEL 1.1 occluded L MAKAYLA. Will have podiatry comment, if they think his foot needs to have MAKAYLA revascularized even though it is probably adequately collateralized Jose Miguel Jimenes MD [id number],C, A 1C up to 6.0, recommended for him to see PCP and get medical mangement. Possibly start metformin or oral hypoglycemic March 26, 2021 N eeds to be evaluated for prediabetes by PCP, would like him to be started on Metformin or otherwise consider for STEPHF Jose Miguel Jimenes MD [id number],S, L ikely related to orthostatic positional changes. Recommended Na+ liberation in diet. Jose Miguel Jimenes MD Cardiology: 6 .0 A1C WILL RECHECK June 02, 2023 5 .3 A1C Jose Miguel Jimenes MD Cardiology: T his visit has been a part of the consistent, comprehensive, and ongoing management of the chronic medical condition(s) listed above for the patient. T he patient is using CPAP on a regular basis. The patient has been benefiting from therapy and should continue use. July 03, 2024 T hinking about wanting to come to see if needs CPAP. Can arrange home sleep study. Jose Miguel Jimenes MD Cardiology Jose Miguel Jimenes MD Cardiology:This visi t has been a part of the consistent, comprehensive, and ongoing management of the chronic medical condition(s) listed above for the patient. His updated medication list for this problem includes: Atorvastatin 40 Mg Tablet (Atorvastatin) ..... Take 1 tablet by mouth daily Jose Miguel Jimenes MD Cardiology: T his visit has been a part of the consistent, comprehensive, and ongoing management of the chronic medical condition(s) listed above for the patient. H ad stents to RCA and LCX. Remaining on DAPT for 12 months. Currently remains on DAPT. Reviewed option of coming off of Plavix and staying on ASA alone. June 18, 2021 C ONCLUSIONS: 1 . Normal sinus rhythm. Nonspecific ST-T abnormality. 2 . Hypertensive response to exertion. 3 . Normal left ventricle size. 4 . Left Ventricular Ejection Fraction is 64 %. TID: 0.92. 5 . Abnormal perfusion imaging in the lateral apical wall with a severe perfusion defect and is not reversibile. No plans for cath he is asymptomatic and no ischemia noted. July 03, 2024 T his visit has been a part of the consistent, comprehensive, and ongoing management of the chronic medical condition(s) listed above for the patient. C ontinue DAPT Jose Miguel Jimenes MD Cardiology: H is updated medication list for this problem includes: Atorvastatin 40 Mg Tablet (Atorvastatin) ..... Take 1 tablet by mouth daily H E IS HERE TO DISCUSS THE LPa AND QUALIFIES FOR OCEAN(a) STUDY AND WANTS TO ENROLL LPa WAS 221 HE HAS HAD STENTS TO HEART AND PRIOR NSTEMI Jose Miguel Jimenes MD Cardiology: T his visit has been a part of the consistent, comprehensive, and ongoing management of the chronic medical condition(s) listed above for the patient. B P today: 129/65 P rior BP: 123/90 (06/02/2023) Labs Reviewed: C reat: 0.93 (03/27/2021) Jose Miguel Jimenes MD Cardiology: T his visit has been a part of the consistent, comprehensive, and ongoing management of the chronic medical condition(s) listed above for the patient. T he patient is using CPAP on a regular basis. The patient has been benefiting from therapy and should continue use. Jose Miguel Jimenes MD Cardiology: L LE great toe evulsed nail growing back. Saw podiatry. Had ANABEL 1.1 occluded L MAKAYLA. Will have podiatry comment, if they think his foot needs to have MAKAYLA revascularized even though it is probably adequately collateralized Jose Miguel Jimenes MD Cardiology: T his visit has been a part of the consistent, comprehensive, and ongoing management of the chronic medical condition(s) listed above for the patient. H ad stents to RCA and LCX. Remaining on DAPT for 12 months. Currently remains on DAPT. Reviewed option of coming off of Plavix and staying on ASA alone. June 18, 2021 C ONCLUSIONS: 1 . Normal sinus rhythm. Nonspecific ST-T abnormality. 2 . Hypertensive response to exertion. 3 . Normal left ventricle size. 4 . Left Ventricular Ejection Fraction is 64 %. TID: 0.92. 5 . Abnormal perfusion imaging in the lateral apical wall with a severe perfusion defect and is not reversibile. No plans for cath he is asymptomatic and no ischemia noted. Jose Miguel Jimenes MD Cardiology:This visi t has been a part of the consistent, comprehensive, and ongoing management of the chronic medical condition(s) listed above for the patient. H ad stents to RCA and LCX. Remaining on DAPT for 12 months. Currently remains on DAPT. Reviewed option of coming off of Plavix and staying on ASA alone. June 18, 2021 C ONCLUSIONS: 1 . Normal sinus rhythm. Nonspecific ST-T abnormality. 2 . Hypertensive response to exertion. 3 . Normal left ventricle size. 4 . Left Ventricular Ejection Fraction is 64 %. TID: 0.92. 5 . Abnormal perfusion imaging in the lateral apical wall with a severe perfusion defect and is not reversibile. No plans for cath he is asymptomatic and no ischemia noted. Jose Miguel Jimenes MD Cardiology:This visi t has been a part of the consistent, comprehensive, and ongoing management of the chronic medical condition(s) listed above for the patient. T he patient is using CPAP on a regular basis. The patient has been benefiting from therapy and should continue use. Jose Miguel Jimenes MD Cardiology:This visi t has been a part of the consistent, comprehensive, and ongoing management of the chronic medical condition(s) listed above for the patient. B P today: 129/65 P rior BP: 123/90 (06/02/2023) Labs Reviewed: C reat: 0.93 (03/27/2021) C hol: 125 (03/27/2021) HDL: 31 (03/27/2021) LDL: 63 (03/27/2021) T (03/27/2021) His updated medication list for this problem includes: Metoprolol Succinate 25 Mg Tablet Extended Release 24 Hr (Metoprolol succinate) ..... Take 1 tablet by mouth daily Lisinopril 2.5 Mg Tablet (Lisinopril) ..... Take 1 tablet by mouth every day Aspirin 81 Mg Tablet,delayed Release (dr/ec) (Aspirin) ..... Take 1 tablet by mouth once a day Jose Miguel Jimenes MD Cardiology: Adriana parnell on getting EGD colonoscopy done Okay to come off plavix 3-5 days prior to EGD/ colonoscopy. Dr Padilla messer review of invasive and noninvasive testing and recent exam the patient is an acceptable candidate for the planned GI EGD / Colonoscopy procedure recommend to maintain his blood pressure range of 110 to 140 mmHg and a heart rate of 60-80 B p.m.. It is okay to use IV beta blockers calcium channel blockers nitrates and afterload reducing agents to maintain the aforementioned hemodynamics parameters. Tele monitoring and EKG should be done if the patient has arrhythmia during procedure. E cho 06-17-22 CONCLUSIONS: 1 . Normal left ventricular systolic function. Normal left ventricular size. Normal left ventricular wall thickness. There is E to A wave reversal consistent with impaired LV relaxation. E/E': 7.1 Left ventricular ejection fraction is measured at 60 %. 2 . Normal right ventricular size. Normal right ventricular systolic function. 3 . There is trace physiologic aortic valve regurgitation. 4 . There is mild tricuspid regurgitation. IVC is normal in size with normal respiratory response. The RA pressure is estimated a t 5.0 mmHg Estimated peak pulmonary artery systolic pressure is 35.0 mmHg. 5 . There is mild pulmonic regurgitation. E lectronically signed by Jose Miguel Jimenes MD on 07/04/2022 at 4:44 PM Jose Miguel Jimenes MD Cardiology:No new SO B June 02, 2023 E cho from 06/17/22 C ONCLUSIONS: 1 . Normal left ventricular systolic function. Normal left ventricular size. Normal left ventricular wall thickness. There is E to A w ave reversal consistent with impaired LV relaxation. E/E': 7.1 Left ventricular ejection fraction is measured at 60 %. 2 . Normal right ventricular size. Normal right ventricular systolic function. 3 . There is trace physiologic aortic valve regurgitation. 4 . There is mild tricuspid regurgitation. IVC is normal in size with normal respiratory response. The RA pressure is estimated a t 5.0 mmHg Estimated peak pulmonary artery systolic pressure is 35.0 mmHg. 5 . There is mild pulmonic regurgitation. Jose Miguel Jimenes MD Cardiology: T he patient is using CPAP on a regular basis. The patient has been benefiting from therapy and should continue use. Jose Miguel Jimenes MD Cardiology: H ad stents to RCA and LCX. Remaining on DAPT for 12 months. Currently remains on DAPT. Reviewed option of coming off of Plavix and staying on ASA alone. June 18, 2021 C ONCLUSIONS: 1 . Normal sinus rhythm. Nonspecific ST-T abnormality. 2 . Hypertensive response to exertion. 3 . Normal left ventricle size. 4 . Left Ventricular Ejection Fraction is 64 %. TID: 0.92. 5 . Abnormal perfusion imaging in the lateral apical wall with a severe perfusion defect and is not reversibile. No plans for cath he is asymptomatic and no ischemia noted. Jose Miguel Jimenes MD Cardiology: 6 .0 A1C WILL RECHECK June 02, 2023 5 .3 A1C Jose Miguel Jimenes MD Cardiology: T he patient is using CPAP on a regular basis. The patient has been benefiting from therapy and should continue use. Jose Miguel Jimenes MD Cardiology:6.0 A1C WILL RECHECK Jose Miguel Jimenes MD Cardiology: H ad stents to RCA and LCX. Remaining on DAPT for 12 months. Currently remains on DAPT. Reviewed option of coming off of Plavix and staying on ASA alone. June 18, 2021 C ONCLUSIONS: 1 . Normal sinus rhythm. Nonspecific ST-T abnormality. 2 . Hypertensive response to exertion. 3 . Normal left ventricle size. 4 . Left Ventricular Ejection Fraction is 64 %. TID: 0.92. 5 . Abnormal perfusion imaging in the lateral apical wall with a severe perfusion defect and is not reversibile. No plans for cath he is asymptomatic and no ischemia noted. Jose Miguel Jimenes MD Cardiology: H is updated medication list for this problem includes: Atorvastatin 40 Mg Tablet (Atorvastatin) ..... Take 1 tablet by mouth daily H E IS HERE TO DISCUSS THE LPa AND QUALIFIES FOR OCEAN(a) STUDY AND WANTS TO ENROLL LPa WAS 221 HE HAS HAD STENTS TO HEART AND PRIOR NSTEMI Jose Miguel Jimenes MD Cardiology: B P today: 123/63 P rior BP: 121/65 (12/02/2022) Labs Reviewed: C reat: 0.93 (03/27/2021) C hol: 125 (03/27/2021) HDL: 31 (03/27/2021) His updated medication list for this problem includes: Lisinopril 2.5 Mg Tablet (Lisinopril) ..... Take 1 tablet by mouth every day Metoprolol Succinate 25 Mg Tablet Extended Release 24 Hr (Metoprolol succinate) ..... Take 1 tablet by mouth daily Aspirin 81 Mg Tablet,delayed Release (dr/ec) (Aspirin) ..... Take 1 tablet by mouth once a day Jose Miguel Jimenes MD Cardiology: H is updated medication list for this problem includes: Atorvastatin 40 Mg Tablet (Atorvastatin) ..... Take 1 tablet by mouth daily Jose Miguel Jimenes MD Cardiology:reviewed RPM bps are well controlled at home and no new med rx. Jose Miguel Jimenes MD Cardiology: H ad stents to RCA and LCX. Remaining on DAPT for 12 months. Currently remains on DAPT. Reviewed option of coming off of Plavix and staying on ASA alone. June 18, 2021 C ONCLUSIONS: 1 . Normal sinus rhythm. Nonspecific ST-T abnormality. 2 . Hypertensive response to exertion. 3 . Normal left ventricle size. 4 . Left Ventricular Ejection Fraction is 64 %. TID: 0.92. 5 . Abnormal perfusion imaging in the lateral apical wall with a severe perfusion defect and is not reversibile. No plans for cath he is asymptomatic and no ischemia noted. Jose Miguel Jimenes MD Cardiology Jose Miguel Jimenes MD Cardiology:Check car otids L ikely related to orthostatic positional changes. Recommended Na+ liberation in diet. Jose Miguel Jimenes MD Cardiology:Check car otids L ipid panel reviewed. Numbers are favorable. H is updated medication list for this problem includes: Atorvastatin Calcium 40 Mg Oral Tablet (Atorvastatin calcium) ..... Take one tablet daily Jose Miguel Jimenes MD Cardiology: H ad stents to RCA and LCX. Remaining on DAPT for 12 months. Currently remains on DAPT. Reviewed option of coming off of Plavix and staying on ASA alone. June 18, 2021 C ONCLUSIONS: 1 . Normal sinus rhythm. Nonspecific ST-T abnormality. 2 . Hypertensive response to exertion. 3 . Normal left ventricle size. 4 . Left Ventricular Ejection Fraction is 64 %. TID: 0.92. 5 . Abnormal perfusion imaging in the lateral apical wall with a severe perfusion defect and is not reversibile. No plans for cath he is asymptomatic and no ischemia noted. Jose Miguel Jimenes MD Cardiology:Currently taking 2.5mg Lisinopril Discussion of benefits for remote patient monitoring took place. Patient gives consent for remote monitoring of physiologic parameters including, but not limited to, weight, blood pressure, pulse oximetry, respiratory flow rate. BP today: 136/69 P rior BP: 116/55 (12/17/2021) Labs Reviewed: C reat: 0.93 (03/27/2021) C hol: 125 (03/27/2021) HDL: 31 (03/27/2021) His updated medication list for this problem includes: Lisinopril 2.5 Mg Tablet (Lisinopril) ..... Take 1 tablet by mouth once a day Metoprolol Succinate 25 Mg Tablet Extended Release 24 Hr (Metoprolol succinate) ..... Take 1 tablet by mouth daily Aspirin 81 Mg Tablet,delayed Release (dr/ec) (Aspirin) ..... Take 1 tablet by mouth once a day Jose Miguel Jimenes MD Cardiology:Planning on getting colonoscopy done Okay to come off plavix 3-5 days prior to colonoscopy. Dr Sheridan at [place] Jose Miguel Jimenes MD Cardiology: T he patient is using CPAP on a regular basis. The patient has been benefiting from therapy and should continue use. Jose Miguel Jimenes MD Cardiology:Had Pancr eatitis in 08/2021, check LFTs and Lipase. Jose Miguel Jimenes MD Cardiology: V accined planning on getting booster N ever got covid yet Jose Miguel Jimenes MD Cardiology: S tarted metformin Jose Miguel Jimenes MD Cardiology: H is updated medication list for this problem includes: Lisinopril 5 Mg Tablet (Lisinopril) ..... Take 1 tablet by mouth daily Aspirin 81 Mg Tablet,delayed Release (dr/ec) (Aspirin) ..... Take 1 tablet by mouth once a day Metoprolol Succinate 25 Mg Tablet Extended Release 24 Hr (Metoprolol succinate) ..... Take 1 tablet by mouth daily BP today: 116/55 P rior BP: 137/68 (06/18/2021) Labs Reviewed: C reat: 0.93 (03/27/2021) C hol: 125 (03/27/2021) HDL: 31 (03/27/2021) Jose Miguel Jimenes MD Cardiology: H ad stents to RCA and LCX. Remaining on DAPT for 12 months. Currently remains on DAPT. Reviewed option of coming off of Plavix and staying on ASA alone. June 18, 2021 C ONCLUSIONS: 1 . Normal sinus rhythm. Nonspecific ST-T abnormality. 2 . Hypertensive response to exertion. 3 . Normal left ventricle size. 4 . Left Ventricular Ejection Fraction is 64 %. TID: 0.92. 5 . Abnormal perfusion imaging in the lateral apical wall with a severe perfusion defect and is not reversibile. No plans for cath he is asymptomatic and no ischemia noted. Jose Miguel Jimenes MD Electrophysiology:In crease lisinopril to 5 had high BP during stress H is updated medication list for this problem includes: Aspirin 81 Mg Tablet,delayed Release (dr/ec) (Aspirin) ..... Take 1 tablet by mouth once a day Metoprolol Succinate 25 Mg Tablet Extended Release 24 Hr (Metoprolol succinate) ..... Take 1 tablet by mouth daily Lisinopril 2.5 Mg Tablet (Lisinopril) ..... Take 1 tablet by mouth daily Jose Miguel Jimenes MD Electrophysiology:Vaccined plann ing on getting booster Jose Miguel Jimenes MD Electrophysiology:Started metfor min Jose Miguel Jimenes MD Electrophysiology: T he patient is using CPAP on a regular basis. The patient has been benefiting from therapy and should continue use. Jose Miguel Jimenes MD Electrophysiology: H ad stents to RCA and LCX. Remaining on DAPT for 12 months. Currently remains on DAPT. Reviewed option of coming off of Plavix and staying on ASA alone. June 18, 2021 C ONCLUSIONS: 1 . Normal sinus rhythm. Nonspecific ST-T abnormality. 2 . Hypertensive response to exertion. 3 . Normal left ventricle size. 4 . Left Ventricular Ejection Fraction is 64 %. TID: 0.92. 5 . Abnormal perfusion imaging in the lateral apical wall with a severe perfusion defect and is not reversibile. No plans for cath he is asymptomatic and no ischemia noted. Jose Miguel Jimenes MD Cardiology: L ipid panel reviewed. Numbers are favorable. H is updated medication list for this problem includes: Atorvastatin Calcium 40 Mg Oral Tablet (Atorvastatin calcium) ..... Take one tablet daily Jose Miguel Jimenes MD Cardiology: H ad stents to RCA and LCX. Remaining on DAPT for 12 months. Currently remains on DAPT. Reviewed option of coming off of Plavix and staying on ASA alone. Jose Miguel Jimenes MD Cardiology: B P today: 122/60 P rior BP: 130/64 (09/25/2020) His updated medication list for this problem includes: Aspirin 81 Mg Tablet,delayed Release (dr/ec) (Aspirin) ..... Take 1 tablet by mouth once a day Metoprolol Succinate 25 Mg Tablet Extended Release 24 Hr (Metoprolol succinate) ..... Take 1 tablet by mouth daily Lisinopril 2.5 Mg Tablet (Lisinopril) ..... Take 1 tablet by mouth daily Jose Miguel Jimenes MD Cardiology: T he patient is using CPAP on a regular basis. The patient has been benefiting from therapy and should continue use. Jose Miguel Jimenes MD Cardiology: L LE great toe evulsed nail growing back. Saw podiatry. Had ANABEL 1.1 occluded L MAKAYLA. Will have podiatry comment, if they think his foot needs to have MAKAYLA revascularized even though it is probably adequately collateralized Jose Miguel Jimenes MD Cardiology: A 1C up to 6.0, recommended for him to see PCP and get medical mangement. Possibly start metformin or oral hypoglycemic March 26, 2021 N eeds to be evaluated for prediabetes by PCP, would like him to be started on Metformin or otherwise consider for STEPHF Jose Miguel Jimenes MD Cardiology: L ikely related to orthostatic positional changes. Recommended Na+ liberation in diet. Jose Miguel Jimenes MD Cardiology follow up : H ad stents to RCA and LCX. Remaining on DAPT for 12 months. Currently remains on DAPT. Reviewed option of coming off of Plavix and staying on ASA alone. Jose Miguel Jimenes MD Cardiology follow up : T he patient is using CPAP on a regular basis. The patient has been benefiting from therapy and should continue use. Jose Miguel Jimenes MD Cardiology follow up :A1C up to 6.0, recommended for him to see PCP and get medical mangement. Possibly start metformin or oral hypoglycemic Jose Miguel Jimenes MD Cardiology follow up : L ipid panel reviewed. Numbers are favorable. H is updated medication list for this problem includes: Atorvastatin Calcium 40 Mg Oral Tablet (Atorvastatin calcium) ..... Take one tablet daily Jose Miguel Jimenes MD Cardiology follow up :Likely related to orthostatic positional changes. Recommended Na+ liberation in diet. Jose Miguel Jimenes MD Cardiology follow up :LLE great toe evulsed nail growing back. Saw podiatry. Had ANABEL 1.1 occluded L MAKAYLA. Will have podiatry comment, if they think his foot needs to have MAKAYLA revascularized even though it is probably adequately collateralized Jose Miguel Jimenes MD Cardiology follow up :Lipid panel reviewed. Numbers are favorable. H is updated medication list for this problem includes: Atorvastatin Calcium 40 Mg Oral Tablet (Atorvastatin calcium) ..... Take one tablet daily Jose Miguel Jimenes MD Cardiology follow up :He has a few BPs that are written, they appear to be in reasonable range. Is not on an BERNARDO or BB post [place]. Will give low doses to see if he tolerates. BP today: 127/75 Prior BP: 143/73 (10/18/2019) His updated medication list for this problem includes: Toprol Xl 25 Mg Oral Tablet Extended Release 24 Hour (Metoprolol succinate) ..... One tab daily Aspirin Adult Low Strength 81 Mg Oral Tablet Delayed Release (Aspirin) ..... Take one tablet daily Jose Miguel Jimenes MD Cardiology follow up : T he patient is using CPAP on a regular basis. The patient has been benefiting from therapy and should continue use. Jose Miguel Jimenes MD Cardiology follow up : H ad stents to RCA and LCX. Remaining on DAPT for 12 months. Currently remains on DAPT. Reviewed option of coming off of Plavix and staying on ASA alone. Jose Miguel Jimenes MD Cardiology:Will repe at labs. His updated medication list for this problem includes: Atorvastatin Calcium 40 Mg Oral Tablet (Atorvastatin calcium) ..... Take one tablet daily Brian Estrada Cardiology:Will add Toprol XL 25 mg daily BP today: 143/73 Brian Estrada Cardiology:The patie nt is using CPAP on a regular basis. The patient has been benefiting from therapy and should continue use. Brian Estrada Cardiology:Had stent s to RCA and LCX. Remaining on DAPT for 12 months. Brian Estrada Date Name Carotid Duplex Bilat eral Complete Echo Sleep Study Home Arterial Duplex Bi-L ower EX EKG HEMOGLOBIN A1c Lipoprotein (a) LIPID PANEL COMPREHENSIVE METABO LIC PANEL, W/EGFR LIPID PANEL COMPREHENSIVE METABO LIC PANEL, W/EGFR Complete Echo RPM (remote patient monitoring) B TYPE NATRIURETIC P EPTIDE (BNP) CBC (INCLUDES DIFF/P LT) HEMOGLOBIN A1c LIPID PANEL COMPREHENSIVE METABO LIC PANEL, W/EGFR Stress Exercise Card iolite HEMOGLOBIN A1c LIPID PANEL COMPREHENSIVE METABO LIC PANEL, W/EGFR Arterial Duplex Bi-L ower EX Complete Echo HEMOGLOBIN A1c LIPID PANEL COMPREHENSIVE METABO LIC PANEL, W/EGFR HISTORY OF PROCEDURES Procedure Date Procedure Name Provider Procedure Notes S tatus Complex e/m visit add on Jose Miguel Jimenes MD completed Complex e/m visit add on Jose Miguel Jimenes MD completed EKG Jose Miguel Jimenes MD compl eted Complex e/m visit add on Jose Miguel Jimenes MD completed EKG Jose Miguel Jimenes MD compl eted EKG Jose Miguel Jimenes MD compl eted EKG Jose Miguel Jimenes MD compl eted EKG Jose Miguel Jimenes MD compl eted EKG Jose Miguel Jimenes MD compl eted EKG Jose Miguel Jimenes MD compl eted EKG Jose Miguel Jimenes MD compl eted TORRES Jimenes MD compl eted TORRES Jimenes MD compl eted TORRES Jimenes MD compl eted TORRES Jimenes MD compl eted
--- OUTSIDE RECORDS SUMMARY | 2024-09-02 17:36 | XMS_ITS | Clinical Summary ---
Author Organization [facility] Address [address] [place] [address] Care Team Providers Care Professor Of Historical Theology Name Role Phone Gina Isaac Gulshan JAUREGUI-GROUNDS CLEANER Primary Care Provider Source Comments [facility],non-owned Affiliates and Associated Physician Practices is amultiple site organization consisting of ambulatory clinics and hospital sitesin [place], [place], [place] and [place]. This disclosure is being madepursuant to the Care Everywhere program and may not contain all information available regarding this patient. Last updated 18.[facility] Active Problems Problem Noted Date Diagnosed Date Fatty (change of) liver, not elsewhere classifie d 08/20/2015 Other specified abnormal findings of blood chemi stry 07/09/2015 Acute pancreatitis without infection or necrosis 07/09/2015 Overview (08/28/2017): 2014 episode of acute pancreatitis Family History Medical History Relation Name Comments None Known Father None Known Mother Relation Name Status Comments Father Mother Social History Tobacco Use Types Packs/Day Years Used Date Smoking Tobacco: Former Cigarettes Q uit: 07/09/1974 Smokeless Tobacco: Never Alcohol Use Standard Drinks/Week Comments No 0 (1 standard drink = 0.6 oz pur e alcohol) Sex and Gender Information Value Date Recorded Sex Assigned at Not on file Gender Identity Not on file Sexual Orientation Not on file Last Filed Vital Signs Vital Sign Reading Time Taken Comments Blood Pressure 137/62 07/30/2015 8:34 AM COVER SEAMER Pulse 81 07/30/2015 8:34 AM COVER SEAMER Temperature 36.7 C (98.1 F) 07/30/2015 8:34 AM COVER SEAMER Respiratory Rate 16 07/30/2015 8:34 AM COVER SEAMER Oxygen Saturation - - Inhaled Oxygen Concentration - - Weight 85.5 kg (188 lb 6.4 oz) 07/30/2015 8:34 A M COVER SEAMER Height 177.8 cm (5' 10 ) 07/30/2015 8:34 AM COVER SEAMER Body Mass Index 27.03 07/30/2015 8:34 AM COVER SEAMER Plan of Treatment Health Maintenance Due Date Last Done Comments MEDICARE AWV 12 MONTHS 1945 HEPATITIS C SCREENING 08/22/1965 DTAP/TDAP/TD VACCINES (1 - Tdap) 08/26/1966 PNEUMOCOCCAL VACCINE 50+ (1 of 1 - PCV) 08/26/1997 ZOSTER VACCINE (1 of 2) 08/26/1997 Respiratory Syncytial Virus (RSV) Vaccine Pt: or over 60 yrs (1 - 1-dose 75+ series) 08/26/2022 COVID-19 VACCINE ( - 2023-2 5 season) 2024 DEPRESSION SCREENING 05/29/2024 INFLUENZA VACCINE (Season Ended) 2025 HEPATITIS B VACCINE Aged Out No longe r eligible based on patient's age to complete this topic HIB VACCINE Aged Out No longer eligi ble based on patient's age to complete this topic HPV VACCINE Aged Out No longer eligi ble based on patient's age to complete this topic MENINGOCOCCAL (Group B) VACC INE SHARED DECISION-MAKING Aged Out No longer eligibl e based on patient's age to complete this topic MENINGOCOCCAL GROUPS A/C/Y/W VACCINE Aged Out No longer eligible b ased on patient's age to complete this topic Care Teams Professor Of Historical Theology Relationship Specialty Start Date End Date Gina Isaac, PROFESSIONAL ORGANIZER-GROUNDS CLEANER [address] [place] [address] PCP - General 02/04/22
--- OUTSIDE RECORDS SUMMARY | 2024-09-02 17:36 | XMS_ITS | Referral Summary ---
Author Organization [facility] Address [address] [place] [id number] Care Team Providers Care Wind Commissioning Technician Name Role Phone Anish Crowe MD Primary Care Provide r Allergies Active Allergy Reactions Criticality Noted Date Comments Morphine Mental status changes Low 11/20/2023 Medications traMADoL (ULTRAM) 50 mg tablet Take 1 tablet (50 mg total) by mouth every 6 (six) hours as needed for pain Active pregabalin (LYRICA) 75 mg capsule Take 1 capsule (75 mg total) by mouth 2 (two) times a day Active metFORMIN (GLUCOPHAGE) 500 mg tablet Take 1 tablet (500 mg total) by mouth 2 (two) times a day with meals Active clopidogreL (PLAVIX) 75 mg tablet Take 1 tablet (75 mg total) by mouth daily Active atorvastatin (LIPITOR) 40 mg tablet Take 1 tablet (40 mg total) by mouth daily Active loratadine 10 mg capsule Take by mouth Active acidophilus-pec tin, citrus 100 million cell-10 mg capsule Take by mouth Active metoprolol XL (TOPROL-XL) 25 mg extended release tablet Take 1 tablet (25 mg total) by mouth daily Active lisinopriL (PRINIVIL,ZESTR IL) 2.5 mg tablet Take 1 tablet (2.5 mg total) by mouth daily Active tamsulosin (FLOMAX) 0.4 mg extended release capsule 1 capsule (0.4 mg total) Active aspirin 81 mg enteric coated tablet Take 1 tablet (81 mg total) by mouth daily Active vibegron (Gemtesa) 75 mg tablet Take by mouth Active Active Problems No known active problems Social History Tobacco Use Types Packs/Day Years Used Date Smoking Tobacco: Former Cigarettes Passive Smoke Exposure: Past Tobacco Cessation:Counseling Given: Not Answered Personal Safety Answer Date Recorded Getting School Help Needed Not on file 11/09 Sex and Gender Information Value Date Recorded Sex Assigned at Not on file Legal Sex Male 3:18 PM CDT Gender Identity Not on file Sexual Orientation Not on file Last Filed Vital Signs Vital Sign Reading Time Taken Comments Blood Pressure 100/50 11/20/2023 10:58 AM CDT Pulse 73 11/20/2023 10:58 AM CDT Temperature - - Respiratory Rate - - Oxygen Saturation 95% 11/20/2023 10:58 AM CDT Inhaled Oxygen Concentration - - Weight 83.9 kg (185 lb) 11/20/2023 10:58 AM CDT Height 177.8 cm (5' 10 ) 11/20/2023 10:58 AM CDT Body Mass Index 26.54 11/20/2023 10:58 AM CDT Plan of Treatment Not on file Insurance MEDICARE [facility] Care Teams Wind Commissioning Technician Relationship Specialty Start Date End Date Anish Crowe MD [address] [place] [address] PCP - General Internal Medicine 11/10/23
--- OUTSIDE RECORDS SUMMARY | 2024-09-02 17:36 | XMS_ITS | Patient Health Record ---
Author Organization [facility] [employer] [facility] Address [id number] [place] [address] [address] [place] [address] Care Team Providers Care Department Of Mathematics Chair Name Role Phone Cuauhtemoc Barajas MD Unavailable Unavailable Reason For Referral No Information Plan Of Treatment No Information Insurance Providers Payer Name Payer Address Payer Phone Subscriber Number Group Number Insured Name Patient Relationship to Insured Coverage Start Date Coverage End Date [place] [address] [address] [place] [address] [id number] Jorge Bonilla Self - patient is the insured 3 [facility] [address] [place] [address] [id number] Jorge Bonilla Self - patient is the insured 5
--- OUTSIDE RECORDS SUMMARY | 2024-09-02 17:36 | XMS_ITS | Data Portability ---
Author Organization [place] - [facility] [employer], Main Office Address [address] [place] [id number] Care Team Providers Care Asp Net Developer Name Role Phone CORWIN CROWE Primary Care Provider SIRI, NEVAEH MCCAULEY Neurologist RAY JIMENES Atomizer Assembler PRADIP MURDOCK Physician Representative BETTY CAUSEY Tassel Making Machine Operator [phone] NATALIA VARELA Motorcycle Technician [employer] Auricular Detoxification Specialist [phone] Assessment Encounter Date Assessment Date Assessment LastModified by Organization Details LastModified Time 02/19/2024 02/19/2024 07/06/2023: A1C 5.6 PSA 2.69 ALP 134H, gluc 102 H/H 12.3/38.6 10/05/2023: [facility] Hospital labs Lipase 159<- 1307 10/03/2023 WBC 9.8<-12.4 10/03/2023 Not available 02/19/2024 15:39:50 02/21/2024 02/21/2024 Assessment: Severe OSAHS, AHI = 43 Plan: The following were reviewed and explained to the patient: primary care/referral note [facility] diagnostic sleep study 08/07/17 sleep onset = 10.5 minutes, REM onset = 145.5 minutes, AHI = 34, supine AHI = 43, PLMI = 0.0. [facility] titration sleep study 05/12/28 sleep onset = 16.5 minutes, REM onset = 279 minutes, ResMed medium AirFift F20 full face mask @ 12 cmH2O, PLMI = 0.0. PAP compliance downloaded and interpreted x 20 minutes. Data reviewed and explained to the patient. Average apnea/hypopnea index (AHI) is 0.6. Patient used PAP > 4 hours 57% of the time. PAP is set at 18 cmH2O. PAP will be reset at 17 cmH2O. Keep ramp start at 4 cmH2O. Keep ramp duration at 20 minutes. Keep humidifier on automatic mode. Keep tube temperature on automatic mode. Keep EPR off. Oxygen supplementation: none Patient is benefiting from PAP therapy. Encouraged patient to maintain PAP use more than 70% of the time. Statement of PAP use and benefits will be sent to the home care store. Educated the patient on problems and solutions associated with positive airway pressure (PAP) use. Difficulty tolerating pressure, mask leaks, intolerance of interface, nasal congestion, claustrophobic response, dry mouth, and unintentional mask removal during sleep were covered. Patient's mask leaks air. We will ensure the mask is situated properly. Patient can wear protective eye covering during sleep, and the mask can be resized. Provided the patient with a list of local home care stores where positive airway pressure (PAP) units, accoutrement, and services are available. Home care store selection is based on patient's insurance carrier. Patient will setup an appointment with [facility] for supplies and pressure adjustments. A major predictor of success with use of PAP is follow-up with both the respiratory supplier and the treating physician. The download results can show the treating physician information about adherence to treatment, residual AHI while on treatment and presence of large mask leakage. This information is especially helpful if the patient has residual sleepiness despite treatment. General information on sleep disordered breathing, evaluation of sleep disordered breathing, treatment with PAP therapy, and living with PAP therapy were covered. We discussed with the patient the impact of weight on: Sleep disordered breathing Hypertension Hyperlipidemia Prediabetes CAD VIVEK Hepatic steatosis Umbilical hernia Left inguinal hernia Osteopenia Lumbar stenosis PAD We discussed with the patient the benefit of PAP therapy on: Sleep disordered breathing Cerebral atrophy Vertigo Kinetosis Sinusitis Hypertension Mild TR PASP 35 mmHg Prediabetes AR VIVEK Educated the patient on sleep hygiene measures. Relaxing rituals to rest easy, understanding foods with positive and negative impact on sleep, creating a peaceful sleep environment, timing of exercise, using herbal sleep aids, and practicing sleep-friendly meditation were covered. To determine how much sleep is needed, the patient will assess where he falls on the spectrum, examine what lifestyle factors such as work schedules and stress are affecting the quality and quantity of sleep. In general, adults need 7-9 hours of sleep. Educated the patient regarding foods that promote sleep. These include but are not limited to cherries, bananas, toast, oatmeal, and warm milk. Educated the patient regarding foods and drinks to avoid before bedtime. These include but are not limited to aged cheese, chocolate, spicy foods, tomato-based sauces, soy, ginseng tea and processed meat. Advocated influenza vaccination annually and pneumonia vaccination DEVENDRA. Advocated weight loss through diet and exercise. Patient's ideal body weight according to height and gender is up to 180 lbs. Encouraged patient to adjust caloric intake to maintain/achieve ideal body weight, emphasizing on fruits, vegetables, whole grains, and fat-free or low-fat products. These include lean meats, poultry, fish, beans, eggs, and nuts and foods that are low in saturated fats, trans-fats, cholesterol, salt (sodium), and glycemic index. Stressed the importance of regular exercise up to the patient's capacity limits. In this case, we recommend 20 min daily walking, 2 days a week of resistance training. Patient to monitor BP daily and bring records to PCP for further management. Follow-up: 1 year, January 2025 [email or web address] Not available 02/21/2024 11:17:14 02/29/2024 02/29/2024 This note is dictated and transcribed by [employer]. Scrubber Operator variances may occur. Despite proofreading, typographical errors may occur. Occasional wrong-word or '[id number]-j-kvys' substitutions may have occurred due to the inherent limitations of voice recording. Read the chart carefully and recognize, using context, where substitutions have occurred. Not available 02/29/2024 10:38:10 06/17/2024 06/17/2024 07/06/2023: A1C 5.6 PSA 2.69 ALP 134H, gluc 102 H/H 12.3/38.6 10/05/2023: [facility] labs Lipase 159<- 1307 10/03/2023 WBC 9.8<-12.4 10/03/2023 02/21/2024: ALP 144 Not available 06/17/2024 11:10:49 07/16/2024 07/16/2024 This note is dictated and transcribed by [employer]. Scrubber Operator variances may occur. Despite proofreading, typographical errors may occur. Occasional wrong-word or 'fqyra-x-[id number]' substitutions may have occurred due to the inherent limitations of voice recording. Read the chart carefully and recognize, using context, where substitutions have occurred. Not available 07/16/2024 10:10:40 Plan of Treatment Reminders Order Date Submit Date Provider Last Modified By Organization Details Last Modified Time Details Appointments Any 2024 09:30A M Corwin card MD Not available Not available Not available Any 2024 09:15A M Natalia Varela MD Not available Not available Not available Lab vitamin D, 25-hydrox y, total, serum [email or web address] [place] [address], [address] [place], [address], 06/17/2024 11:10:38 microalbu min, urine 2024 025 [facility], [address] [place], [address], 06/18/2024 11:55:23 glycohemo globin, total, blood 2024 025 [facility], [address] [place], [address], 06/18/2024 12:52:08 lipid panel, serum 2024 025 [facility], [address] [place], [address], 06/18/2024 11:55:54 CMP, serum or plasma 2024 025 [facility], [address] [place], [address], 06/18/2024 11:55:59 CBC w/ auto diff 2024 025 [facility], [address] [place], [address], 06/18/2024 11:44:48 TSH, serum or plasma 2024 025 [facility], [address] [place], [address], 06/18/2024 12:39:52 T4, free, serum 2024 025 [facility], [address] [place], [address], 06/18/2024 12:21:19 vitamin D, 25-hydrox y, total, serum [address], [address] [place], [address], 08/21/2024 08:11:30 microalbu min, urine 2023 024 [facility], [address] [place], [address], 02/21/2024 11:40:35 glycohemo globin, total, blood 2023 024 [facility], [address] [place], [address], 02/22/2024 11:40:53 lipid panel, serum 2023 024 [facility], [address] [place], [address], 02/21/2024 11:35:20 CMP, serum or plasma 2023 024 [facility], [address] [place], [address], 02/21/2024 11:35:26 CBC w/ auto diff 2023 024 [facility], [address] [place], [address], 02/21/2024 11:16:21 TSH, serum or plasma 2023 024 [facility], [address] [place], [address], 02/21/2024 12:04:48 T4, free, serum 2023 024 [facility], [address] [place], [address], 02/21/2024 11:54:29 Referral podiatris t referral 2024 025 Pradip Murdock DPM, [address] [facility], [address], [place], [address], 06/17/2024 11:35:39 cardiolog ist referral 2024 025 [email or web address] Ray Jimenes MD, [address] [facility], [address], [place], [address], 06/17/2024 11:35:39 gastroent erologist referral 2024 025 Betty Causey MD, [address], [place], [address], 06/17/2024 11:35:40 pain managemen t referral [email or web address] Tyrone Hennessy, [address], [address], [place], [address], 03/18/2024 16:52:03 podiatris t referral 2023 024 Pradip Murdock DPM, [address] [facility], [address], [place], [address], 03/18/2024 16:52:17 cardiolog ist referral 2023 024 [email or web address] Ray Jimenes MD, [address], [facility] [address], [place], [address], 03/18/2024 16:51:33 Procedures None recorded. Surgeries None recorded. Imaging None recorded. Medication Orders None recorded. Patient TargetsNo targets recorded. Patient Instructions Encounter Date Encounter Id Patient Instructions Last Modified By Organization Details Last Modified Time 02/19/2024 [id number] diabetic eye exam* RC Not available 04/16/2024 09:08:52 Reason for Referral Atomizer Assembler Referral for Co ronary arteriosclerosis Referring Physician: Corwin Crowe [facility], Encounter Date: 02/19/2024 Pain Management Referral for Chronic pain Referring Physician: Corwin Crowe [facility], Encounter Date: 02/19/2024 Physician Representative Referral for Pain in both feet Referring Physician: Corwin Crowe [facility], Encounter Date: 02/19/2024 Atomizer Assembler Referral for Co ronary arteriosclerosis Referring Physician: Corwin Crowe [facility], Encounter Date: 06/17/2024 Physician Representative Referral for Pain in both feet Referring Physician: Corwin Crowe [facility], Encounter Date: 06/17/2024 Tassel Making Machine Operator Referral for Liver enzymes level above reference range Referring Physician: Corwin Crowe [facility], Encounter Date: 06/17/2024 Results Created Date Observation Date Name Description Value Unit Range Abnormal Flag Note LastModifiedBy Organization Detail LastModifiedTime 02/21/2002/21/2024 CBC/C OMPLE TE BLD COUNT W/DIF F white blood cells 6.4 x10'3 /uL 4.2-10 .8 Not Available [facility] (Lab) [address] [place], [address], 02/21/2024 11:16:21 02/21/2002/21/2024 CBC/C OMPLE TE BLD COUNT W/DIF F red blood cells 4.73 x10'6 /uL 4.10-5 .80 Not Available [facility] (Lab) [address] [place], [address], 02/21/2024 11:16:21 02/21/2002/21/2024 CBC/C OMPLE TE BLD COUNT W/DIF F hemoglobin 13.2 g/dL 13.2-1 7.0 Not Available [facility] (Lab) [address] [place], [address], 02/21/2024 11:16:21 02/21/2002/21/2024 CBC/C OMPLE TE BLD COUNT W/DIF F hematocrit 40.4 % 39.3-5 0.0 Not Available [facility] (Lab) [address] [place], [address], 02/21/2024 11:16:21 02/21/2002/21/2024 CBC/C OMPLE TE BLD COUNT W/DIF F mean red cell volume 85.4 fL 80.0-9 7.0 Not Available [facility] (Lab) [address] [place], [address], 02/21/2024 11:16:21 02/21/2002/21/2024 CBC/C OMPLE TE BLD COUNT W/DIF F mean red cell hemoglobin 27.9 pg 27.0-3 3.0 Not Available [facility] (Lab) [address] [place], [address], 02/21/2024 11:16:21 02/21/2002/21/2024 CBC/C OMPLE TE BLD COUNT W/DIF F mean RBC HGB concentratio n 32.7 g/dL 31.0-3 6.0 Not Available [facility] (Lab) [address] [place], [address], 02/21/2024 11:16:21 02/21/20 24 02/21/2024 CBC/C OMPLE TE BLD COUNT W/DIF F red cell distribution width 14.4 % 11.8-1 5.5 Not Available [facility] (Lab) [address] [place], [address], 02/21/2024 11:16:21 02/21/2002/21/2024 CBC/C OMPLE TE BLD COUNT W/DIF F platelets 245 x10'3 /uL 150-40 0 Not Available [facility] (Lab) [address] [place], [address], 02/21/2024 11:16:21 02/21/2002/21/2024 CBC/C OMPLE TE BLD COUNT W/DIF F mean platelet volume 11.4 fL 9.0-12 .4 Not Available [facility] (Lab) [address] [place], [address], 02/21/2024 11:16:21 02/21/20 24 02/21/2024 CBC/C OMPLE TE BLD COUNT W/DIF F neutrophils 65.8 % 39.0-7 2.0 Not Available [facility] (Lab) [address] [place], [address], 02/21/2024 11:16:21 02/21/2002/21/2024 CBC/C OMPLE TE BLD COUNT W/DIF F lymphocytes 22.9 % 16.0-4 7.0 Not Available [facility] (Lab) [address] [place], [address], 02/21/2024 11:16:21 02/21/2002/21/2024 CBC/C OMPLE TE BLD COUNT W/DIF F monocytes 6.4 % 5.0-12 .0 Not Available [facility] (Lab) [address] [place], [address], 02/21/2024 11:16:21 02/21/20 24 02/21/2024 CBC/C OMPLE TE BLD COUNT W/DIF F eosinophils 3.4 % 1.0-7. 0 Not Available [facility] (Lab) [address] [place], [address], 02/21/2024 11:16:21 02/21/20 24 02/21/2024 CBC/C OMPLE TE BLD COUNT W/DIF F basophils 1.2 % 0.0-2. 0 Not Available [facility] (Lab) [address] [place], [address], 02/21/2024 11:16:21 02/21/2002/21/2024 CBC/C OMPLE TE BLD COUNT W/DIF F immature granulocytes 0.3 % 0.00-0 .50 Not Available [facility] (Lab) [address] [place], [address], 02/21/2024 11:16:21 02/21/20 24 02/21/2024 CBC/C OMPLE TE BLD COUNT W/DIF F neutrophils, absolute count 4.22 x10'3 /uL 1.5-8. 0 Not Available [facility] (Lab) [address] [place], [address], 02/21/2024 11:16:21 02/21/2002/21/2024 CBC/C OMPLE TE BLD COUNT W/DIF F lymphocytes, absolute count 1.47 x10'3 /uL 1.07-3 .43 Not Available [facility] (Lab) [address] [place], [address], 02/21/2024 11:16:21 02/21/20 24 02/21/2024 CBC/C OMPLE TE BLD COUNT W/DIF F monocytes, absolute count 0.41 x10'3 /uL 0.29-0 .99 Not Available [facility] (Lab) [address] [place], [address], 02/21/2024 11:16:21 02/21/20 24 02/21/2024 CBC/C OMPLE TE BLD COUNT W/DIF F eosinophils, absolute count 0.22 x10'3 /uL 0.02-0 .53 Not Available [facility] (Lab) [address] [place], [address], 02/21/2024 11:16:21 02/21/20 24 02/21/2024 CBC/C OMPLE TE BLD COUNT W/DIF F basophils, absolute count 0.08 x10'3 /uL 0.01-0 .08 Not Available [facility] (Lab) [address] [place], [address], 02/21/2024 11:16:21 02/21/20 24 02/21/2024 CBC/C OMPLE TE BLD COUNT W/DIF F immature granulocytes ,absolute 0.02 x10'3 /uL 0.00-0 .05 Not Available [facility] (Lab) [address] [place], [address], 02/21/2024 11:16:21 02/21/20 24 02/21/2024 CBC/C OMPLE TE BLD COUNT W/DIF F nucleated red blood cells 0.0 % -0 Not Available [facility] (Lab) [address] [place], [address], 02/21/2024 11:16:21 02/21/20 24 02/21/2024 CBC/C OMPLE TE BLD COUNT W/DIF F NRBC# 0.00 x10'3 /uL Not Available [facility] (Lab) [address] [place], [address], 02/21/2024 11:16:21 02/21/20 24 02/21/2024 LIPID PANEL cholesterol 116 mg/dL 140-19 9 low NIH HERBERT NSUS RECOM MENDA TION FOR NOHEMY STERO L: ADULT CHILD LOW RISK: <200 <170 BORDE RLINE : <200- 239 ----- HIGH RISK: >240 >200 Not Available [facility] (Lab) [address] [place], [address], 02/21/2024 11:35:20 02/21/20 24 02/21/2024 LIPID PANEL triglyceride s 115 mg/dL 0-150 NIH HERBERT NSUS REPOR T RECOM MENDA TION FOR TRIGL YCERI NELA: ADULT CHILD LOW RISK: <150 ----- BODER LINE: 150-1 99 ----- HIGH RISK: >200 ----- Not Available [facility] (Lab) [address] [place], [address], 02/21/2024 11:35:20 02/21/20 24 02/21/2024 LIPID PANEL HDL cholesterol 39 mg/dL 40- low Not Available [facility] (Lab) [address] [place], [address], 02/21/2024 11:35:20 02/21/2002/21/2024 LIPID PANEL LDL cholesterol, calculated 54 mg/dL 0-130 NIH HERBERT NSUS REPOR T RECOM MENDA TIONS FOR LDL: ADULT CHILD LOW RISK <130 <110 (OPTI MAL LDL) <100 ----- BORDE RLINE : 130-1 59 ----- HIGH RISK: >160 >130 A TRIGL YCERI DE RESUL T >400 INVAL IDATE S THE CALCU LATIO N FOR LDL FRACT IONAT ION - THE LDL RESUL T WILL NOT BE REPOR ROSA. Not Available [facility] (Lab) [address] [place], [address], 02/21/2024 11:35:20 02/21/2002/21/2024 COMPR EHENS HARIS METAB OLIC PANEL sodium 138 mmol/ L 137-14 5 Not Available [facility] (Lab) [address] [place], [address], 02/21/2024 11:35:26 02/21/20 24 02/21/2024 COMPR EHENS HARIS METAB OLIC PANEL potassium 4.1 mmol/ L 3.5-5. 1 Not Available [facility] (Lab) [address] [place], [address], 02/21/2024 11:35:26 02/21/20 24 02/21/2024 COMPR EHENS HARIS METAB OLIC PANEL chloride 103 mmol/ L 98-107 Not Available [facility] (Lab) [address] [place], [address], 02/21/2024 11:35:26 02/21/20 24 02/21/2024 COMPR EHENS HARIS METAB OLIC PANEL carbon dioxide 27 mmol/ L 22-30 Not Available [facility] (Lab) [address] [place], [address], 02/21/2024 11:35:26 02/21/20 24 02/21/2024 COMPR EHENS HARIS METAB OLIC PANEL anion gap 12.1 mmol/ L 14-22 low Not Available [facility] (Lab) [address] [place], [address], 02/21/2024 11:35:26 02/21/20 24 02/21/2024 COMPR EHENS HARIS METAB OLIC PANEL glucose 99 mg/dL 70-99 Not Available [facility] (Lab) [address] [place], [address], 02/21/2024 11:35:26 02/21/20 24 02/21/2024 COMPR EHENS HARIS METAB OLIC PANEL BUN 16 mg/dL 8-19 Not Available [facility] (Lab) [address] [place], [address], 02/21/2024 11:35:26 02/21/20 24 02/21/2024 COMPR EHENS HARIS METAB OLIC PANEL creatinine 0.95 mg/dL 0.66-1 .25 Not Available [facility] (Lab) [address] [place], [address], 02/21/2024 11:35:26 02/21/2002/21/2024 COMPR EHENS HARIS METAB OLIC PANEL GFR >60 Refer ence Range : [place] GFR Healt hy Adult : >60 mL/mi n/1.7 3 m2 Chron ic Kidne y Disea se: 15-60 mL/mi n/1.7 3 m2 Kidne y Failu re: <15/m L/min /1.73 m2 www.n iddk. nih.g ov The MDRD study equat ion has not been valid ated in child sharan <18 years of age; pregn ant women ; the elder ly >85 years of age; or in some racia l or ethni c subgr oups, such as Yen nics. Outsi de the valid ated barbara eters , estim ated GFR is less accur ate, requi ring clini [place] judgm ent on a case- by-ca se basis . Clini [place] inter preta tion for other races and ages must be made by the clini ching. The MDRD study equat ion has not been valid ated for the evalu ation of serum creat inine relat ed to nutri robert l statu s or medic ation usage . For perso ns <18 years of age, a pedia tric GFR calcu lator is avail able on the [facility] websi te: https ://carmelo peralta.rojelio rg/pr ofess ional s/kdo qi/gf r_cal culat or Not Available [facility] (Lab) [address] [place], [address], 02/21/2024 11:35:26 02/21/2002/21/2024 COMPR EHENS HARIS METAB OLIC PANEL alkaline phosphatase 144 U/L 38-126 high Not Available [facility] (Lab) [address] [place], [address], 02/21/2024 11:35:26 02/21/20 24 02/21/2024 COMPR EHENS HARIS METAB OLIC PANEL alanine aminotransfe rase 21 U/L 0-50 Not Available [facility] (Lab) [address] [place], [address], 02/21/2024 11:35:26 02/21/20 24 02/21/2024 COMPR EHENS HARIS METAB OLIC PANEL aspartate aminotransfe rase 24 U/L 15-46 Not Available [facility] (Lab[facility] [address] [facility] [place] [address], 02/21/2024 11:35:26 02/21/20 24 02/21/2024 COMPR EHENS HARIS METAB OLIC PANEL bilirubin, total 0.40 mg/dL 0.20-1 .30 Not Available [facility] (Lab) [address] [place], [address], 02/21/2024 11:35:26 02/21/20 24 02/21/2024 COMPR EHENS HARIS METAB OLIC PANEL calcium 9.0 mg/dL 8.4-10 .2 Not Available [facility] (Lab) [address] [place], [address], 02/21/2024 11:35:26 02/21/20 24 02/21/2024 COMPR EHENS HARIS METAB OLIC PANEL total protein 7.2 g/dL 6.3-8. 2 Not Available [facility] (Lab) [address] [place], [address], 02/21/2024 11:35:26 02/21/20 24 02/21/2024 COMPR EHENS HARIS METAB OLIC PANEL albumin 4.2 g/dL 3.0-4. 4 Not Available [facility] (Lab) [address] [place], [address], 02/21/2024 11:35:26 02/21/20 24 02/21/2024 COMPR EHENS HARIS METAB OLIC PANEL globulin 3.0 g/dL 2.6-4. 2 Not Available [facility] (Lab) [address] [place], [address], 02/21/2024 11:35:26 02/21/20 24 02/21/2024 COMPR EHENS HARIS METAB OLIC PANEL A/G ratio 1.4 ratio 1.0-2. 0 Not Available [facility] (Lab) [address] [place], [address], 02/21/2024 11:35:26 02/21/20 24 02/21/2024 MICRO ALBUM IN RANDO M URINE microalbumin , urine 9.7 mg/L 0.0-16 .6 Not Available [facility] (Lab) [address] [place], [address], 02/21/2024 11:40:35 02/21/20 24 02/21/2024 T4 FREE free T4 1.04 NG/dL 0.78-2 .19 Not Available [facility] (Lab) [address] [place], [address], 02/21/2024 11:54:29 02/21/20 24 02/21/2024 VITAM IN D 25-HY DROXY [id number] 50.0 NG/mL 30-100 Vitam in D Statu s: Defic ient: <20 ng/mL Insuf ficie nt: 20-29 ng/mL Suffi cient : 30-10 0 ng/mL Not Available [facility] (Lab) [address] [place], [address], 02/21/2024 11:54:32 02/21/20 24 02/21/2024 TSH thyroid-stim ulating hormone 1.770 uIU/m L 0.465- 4.680 Not Available [facility] (Lab) [address] [place], [address], 02/21/2024 12:04:48 02/21/20 24 02/22/2024 HEMOG LOBIN A1C HA1C 5.3 % 4.0-6. 0 Diabe aye Forde brian Crite brittany: <5.7% Consi stent with absen ce of diabe aye 5.7-6 .4% Consi stent with incre ased risk for diabe aye (pred iabet es) >OR=6 .5% Consi stent with diabe aye REFER ENCE: Diabe aye Care 2016, 39(Ashley ppl.1 ):s13 -s22 Not Available [facility] (Lab) [address] [place], [address], 02/22/2024 11:40:53 02/27/2008/10/2017 polys omnog bear, titra tion study No observ ation record ed. BARCODE Not Available 2023 11:29:50 02/27/20 24 08/07/2017 polys omnog bear, diagn ostic , 6 yrs or older No observ ation record ed. BARCODE Not Available 2023 11:29:50 03/04/20 24 1947 polys omnog misty , diagn ostic (PROC ) No observ ation record ed. BARCODE Not Available 2023 09:22:36 08/07/1908/06/2024 US, abdom inal aorta No observ ation record ed. [facility] [address] [place], [address], 08/06/2024 10:08:01 08/27/19 25 08/26/2024 imagi ng/di agnos tic resul t No observ ation record ed. [facility] [address], [place], [address], 08/26/2024 13:36:33 08/27/19 25 08/26/2024 imagi ng/di agnos tic resul t No observ ation record ed. [facility] [address], [place], [address], 08/26/2024 14:00:53 Result Notes None recorded. Problems Name Problem SNOMED Code Status Onset Date Resolution Date Notes Provider Name and Address Organization Details Recorded Time Spinal stenosis of lumbar region 05339023 Active 2016 Not Available [facility] 3 06:02:55 Steatosis of liver 304028501 Active Not Available [facility] 3 06:02:55 Gastroesop hageal reflux disease 433042006 Active Not Available [facility] 3 06:02:55 Degenerati on of lumbar interverte bral disc 72474068 Active 2016 Not Available [employer] 3 06:02:55 Motion sickness 61135801 Active Not Available [facility] 3 06:02:56 Neuropathy 563903588 Active 2017 Not Available [facility] 3 06:02:56 Vertigo 163096796 Active Not Available [facility] 3 06:02:56 Peripheral vascular disease [id number] Active 2020 Not Available [facility] 3 06:02:56 Acute non-ST segment elevation myocardial infarction 868198306 Active 2019 Not Available [facility] 3 06:02:56 History of placement of stent for coronary artery disease 695532804 Active 2019 Not Available [facility] 3 06:02:57 Seasonal allergy 405751271 Active Not Available [facility] 3 06:02:57 Coronary arterioscl erosis 84578463 Active 2019 Not Available [facility] 3 06:02:57 Hyperlipid emia 58970705 Active 2016 Not Available [facility] 3 06:02:57 Pancreatit is 86374037 Active Not Available [facility] 3 06:02:58 Posterior rhinorrhea 61812228 Active Not Available [facility] 3 06:02:58 Obstructiv e sleep apnea syndrome 41719777 Active 2019 Not Available [facility] 3 06:02:58 Essential hypertensi on 76831045 Active 2023 Corwin cruz MD [address], [place], [address] , [place] [facility] 4 15:05:37 Vitamin D deficiency 73444471 Active 2023 Corwin cruz MD [address], [place], [address] , [place] [facility] 4 15:06:21 Urinary incontinen ce 118755893 Active 2023 Corwin cruz MD [address], [place], [address] , [place] [facility] 4 15:08:12 Type 2 diabetes mellitus without complicati on 625295129 Active 2023 Corwin cruz MD [address], [place], [address] , [place] [facility] 4 15:09:36 Onychomyco sis of toenails 562528215 Active 2023 Pradip Murdock DPM [address], [place], [address] , [employer] [facility] 4 11:15:43 Liver enzymes level above reference range 668232460 Active 2023 Corwin cruz MD [address], [place], [address] , [employer] [facility] 4 19:21:10 Gastroesop hageal reflux disease without esophagiti s 223449061 Active 2024 Corwin cruz MD [address], [place], [address] , [employer] [facility] 5 11:42:36 Pain in both feet 2421361323633 9102 Active 2024 Corwin cruz MD [address], [place], [address] , [facility] [employer] [facility] 5 11:42:36 Acute pancreatit is 359855591 Active 2024 Corwin cruz MD [address], [place], [address] , [facility] [employer] [facility] [employer] [facility] 5 11:42:36 Chronic pain 04322373 Active 2024 Corwin cruz MD [address], [place], [address] , [facility] [employer] [facility] [employer] [facility] 5 11:42:36 Unsteady when walking 99216339 Active 2024 Corwin cruz MD [address], [place], [address] , [facility] [employer] [facility] [employer] [facility] 5 11:42:36 Dystrophia unguium 37214638 Active 2024 Pradip Murdock DPM [address], [place], [address] , [employer] [facility] [employer] [facility] 5 10:10:42 Notes:Medical History: Cereb ral atrophy Vertigo Kinetosis Right frontal sinusitis Postnasal drip Hypertension EF 60% Mild MA Mild TR PASP 35 mmHg Hyperlipidemia Prediabetes with neuropathy CAD s/p AR VIVEK Hepatic steatosis Splenomegaly Pancreatitis Umbilical hernia Left inguinal hernia Colonic diverticulosis Normocytic anemia Right renal cysts Vit D deficiency Osteopenia Lumbar stenosis PAD Procedure History: Cholecytectomy 2001 2 coronary artery stents placement 2019 EGD with polypectomy 2023 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 Procedures Surgical History Date Name Laterality Status Provider Name and Address Organization Details Recorded Time 07/16/19 25 Nail Debridement completed Pradip Murdock DPM [address], [place], [address], [facility] [employer] [facility] 07/16/2024 10:10:08 10/26/19 24 Toenail avulsion completed Pradip Murdock DPM [address], [place], [address], [facility] [employer] [facility] [employer] [facility] 10/26/2023 11:19:43 10/18/19 24 Medicare Wellness CPT Code, subsequent completed Donell Sloan LPN [facility] [employer] 10/18/2023 08:37:53 02/03/20 22 colonoscopy completed Not Available [facility] 07/27/2022 05:56:21 10/01/19 20 placement of stent in cardiac conduit completed Not Available [facility] 07/27/2022 05:56:21 05/29/19 09 cholecystectomy completed Not Available [facility] 07/27/2022 05:56:21 05/29/18 86 vasectomy completed Not Available [facility] 07/27/2022 05:56:21 Imaging Results Imaging Date Name Status LastModified by Vladimir tejeda Details LastModified Time 08/10/2017 polysomnogram, titration study completed [facility] Information not available 02/27/2024 11:29:50 08/07/2017 polysomnogram, diagnostic, 6 yrs or older completed [employer] Information not available 02/27/2024 11:29:50 1947 polysomnography , diagnostic (PROC) completed [facility] Information not available 03/04/2024 09:22:36 08/06/2024 US, abdominal aorta active [facility] [address] [place], [address], 08/06/2024 10:08:01 08/26/2024 imaging/diagnos tic result active [facility] [address], [place], [address], 08/26/2024 13:36:33 08/26/2024 imaging/diagnos tic result active [facility] [address], [place], [address], 08/26/2024 14:00:53 Procedure Notes None recorded. Medical Equipment None Reported. Allergies Allergen ID Allergen Name Allergen Category Reaction Reaction Severity Criticality Documentation Date Start Date Code Code System Note Provider Name and Address Organization Details Recorded Time 75647 morphine medicatio n confusion Not available low 12/28/2022 7052 RxNorm Gina Mejia RN null, [facility] [employer] 08/02/202 3 11:47:36 Medications Name Sig Start Date Stop Date Status Note LastModified by Organization Details LastModified Time amoxicill in 500 mg capsule TK FOUR CS PO 1 HOUR B DAPP 06/21 completed Not Available Not Available Not Available atorvasta tin 40 mg tablet TAKE 1 TABLET BY MOUTH DAILY active Not Available Not Available No t Available metformin 500 mg tablet TAKE 1 TABLET BY MOUTH TWICE DAILY active Not Available Not Available No t Available azithromy hebert 250 mg tablet TAKE 2 TABLETS (500 MG) BY ORAL ROUTE ONCE DAILY FOR 1 DAY THEN 1 TABLET (250 MG) BY ORAL ROUTE ONCE DAILY FOR 4 DAYS active Not Available Not Available No t Available hydrocodo ne 5 mg-acetam inophen 325 mg tablet 06/09 completed Not Available Not Available Not Available meloxicam 15 mg tablet TAKE 1 TABLET BY MOUTH DAILY NEEDED 01/[address] Causey Not Available Not Available Not Available clopidogr el 75 mg tablet TAKE 1 TABLET BY MOUTH DAILY active Not Available Not Available No t Available aspirin 81 mg tablet,de layed release TK 1 T PO D active Not Available Not Available No t Available tramadol 50 mg tablet TAKE 1 TABLET BY MOUTH TWICE DAILY NEEDED active Not Available Not Available No t Available amoxicill in 500 mg tablet 12/07 completed Not Available Not Available Not Available Guiatuss AC 10 mg-100 mg/5 mL oral liquid Take 5 mL every 4-6 hours by oral route as needed for 10 days. 09/24 completed Not Available Not Available Not Available prednisol one acetate 1 % eye drops,griselda pension INSTILL 1 DROP INTO RIGHT EYE THREE TIMES DAILY. THEN TAPER DIRECTED 12/07 completed Not Available Not Available Not Available tamsulosi n 0.4 mg capsule TAKE 1 CAPSULE BY MOUTH DAILY active Not Available Not Available No t Available cephalexi n 500 mg capsule TAKE 1 CAPSULE BY MOUTH EVERY 6 HOURS FOR 10 DAYS 06/21 completed Not Available Not Available Not Available pantopraz ole 40 mg tablet,de layed release TAKE 1 TABLET BY MOUTH EVERY MORNING active Not Available Not Available No t Available gabapenti n 300 mg capsule TAKE 2 CAPSULES BY MOUTH THREE TIMES DAILY DIRECTED active Not Available Not Available No t Available gentamici n 0.1 % topical cream active Not Available Not Available Not Available monteluka st 10 mg tablet Take 1 tablet every day by oral route in the evening for 90 days. active Not Available Not Available No t Available lisinopri l 5 mg tablet TAKE 1 TABLET BY MOUTH EVERY DAY 10/07 completed Not Available Not Available Not Available gabapenti n 100 mg capsule 08/02 completed Not Available Not Available Not Available metoprolo l succinate ER 25 mg tablet,ex tended release 24 hr TAKE 1 TABLET BY MOUTH DAILY active Not Available Not Available No t Available Transderm -Scop 1 mg over 3 days transderm al patch Apply 1 patch every 72 hours by transder mal route as directed . active Not Available Not Available No t Available methylpre dnisolone 4 mg tablets in a dose pack Take by oral route as directed . 06/28 completed Not Available Not Available Not Available ketoconaz ole 2 % topical cream APPLY TO THE AFFECTED AREA ON TOENAILS ONCE DAILY 02/08 completed Not Available Not Available Not Available fluticaso ne propionat e 50 mcg/actua tion nasal spray,griselda pension Inhale 2 sprays every day by intranas al route in the morning for 30 days. active Not Available Not Available No t Available lisinopri l 2.5 mg tablet TAKE 1 TABLET BY MOUTH EVERY DAY active Not Available Not Available No t Available loratadin e 10 mg tablet TAKE 1 TABLET DAILY IN THE MORNING 06/09 completed Not Available Not Available Not Available naproxen 500 mg tablet Take 1 tablet twice a day by oral route as needed. active Not Available Not Available No t Available amoxicill in 875 mg-potass ium clavulana te 125 mg tablet TAKE 1 TABLET BY MOUTH TWICE DAILY UNTIL GONE 06/21 completed Not Available Not Available Not Available dutasteri de 0.5 mg capsule TAKE 1 CAPSULE BY MOUTH DAILY 12/28 completed Not Available Not Available Not Available pregabali n 75 mg capsule TAKE 1 CAPSULE BY MOUTH TWICE DAILY active Not Available Not Available No t Available chlorhexi dine gluconate 0.12 % mouthwash SWISH AND SPIT 10 TO 15 ML TWICE DAILY. START 1 WEEK PRIOR AND CONTINUE 1 WEEK POST. DO NOT EAT/DRIN K FOR 30 MINUTES AFTER USE 06/21 completed Not Available Not Available Not Available loratadin e 10mg daily 2015 active Not Available Not Available Not Avai lable Citracal Regular 1 tablespo on daily 2013 active Not Available Not Available Not Avai lable dutasteri de 0.5 mg-tamsul osin ER 0.4 mg capsule ext.relea se 24hr mphas Take 1 capsule every day by oral route. 12/28 completed Can we make sure that the double therapy for flomax/p roscar are put in seperate ly because the insuranc es are not wanting to pay for the combo Not Available Not Available Not Available Probiotic 02/08 completed Not Available Not Available Not Available Gemtesa 75 mg tablet Take 1 tablet every day by oral route. 02/18 completed Not Available Not Available Not Available Vitals Date Recorded Body height Body mass index (BMI) Body weight Body temperature Heart rate Systolic blood pressure Diastolic blood pressure Provider Name and Address Organization Details Last Updated DateTime 4 177.8 cm 26.5 kg/m2 31843.5 9 g 97.7 [degF] 72 /min 112 mm[Hg] 62 mm[Hg] MONALISA Paiz [facility] [employer] [facility] 4 10:13:49 Date Recorded Body height Body mass index (BMI) Body weight Heart rate Body temperature Heart rate Respiratory rate Oxygen saturation Oxygen saturation in Arterial blood by Pulse oximetry Systolic blood pressure Diastolic blood pressure Provider Name and Address Organization Details Last Updated DateTime 4 177.8 cm 27.2 kg/m2 52966.8 3 g 67 /min 97.6 [degF] 67 /min 18 /min 97 % 97 % 130 mm[Hg] 68 mm[Hg] Mary Miller MA [facility] [employer] [facility] 4 10:31:30 Date Recorded Body height Body mass index (BMI) Body weight Heart rate Respiratory rate Oxygen saturation Oxygen saturation in Arterial blood by Pulse oximetry Systolic blood pressure Diastolic blood pressure Provider Name and Address Organization Details Last Updated DateTime 4 177.8 cm 27.1 kg/m2 69458.9 6 g 70 /min 14 /min 99 % 99 % 96 mm[Hg] 47 mm[Hg] Angella Bolaños [facility] [employer] [facility] 4 10:11:26 Date Recorded Body height Body mass index (BMI) Body weight Body temperature Heart rate Systolic blood pressure Diastolic blood pressure Provider Name and Address Organization Details Last Updated DateTime 5 177.8 cm 28.1 kg/m2 37969.1 g 97.6 [degF] 72 /min 120 mm[Hg] 60 mm[Hg] Mary Richardson [facility] 5 10:52:11 Date Recorded Body height Body mass index (BMI) Body weight Heart rate Respiratory rate Oxygen saturation Oxygen saturation in Arterial blood by Pulse oximetry Systolic blood pressure Diastolic blood pressure Provider Name and Address Organization Details Last Updated DateTime 5 177.8 cm 28.1 kg/m2 25961.1 g 81 /min 14 /min 98 % 98 % 92 mm[Hg] 46 mm[Hg] Angella Bolaños [employer] [facility] [employer] 5 09:57:55 Social History Question Answer Notes LastModified by Organization Details LastModified Time Tobacco Smoking Status Former Smoker Corwin Crowe MD [address] [place] [address], [id number] [employer] 06/21/2023 17:22:05 Do You Have An Advance Directive? Yes [id number] Information not available 07/27/2022 What Is Your Level Of Alcohol Consumption? Occasional [id number] Information not available 07/27/2022 Are You Blind Or Do You Have Difficulty Seeing? No Wears Glasses And Goes To Eye Dr Richard dos santos Information not available 06/21/2023 Is Blood Transfusion Acceptable In An Emergency? Yes [email or web address] Information not available 06/21/2023 What Is Your Level Of Caffeine Consumption? Moderate [id number] Information not available 07/27/2022 How Much Tobacco Do You Chew? None [id number] Information not available 07/27/2022 What Is Your Code Status? DNR Information not available 06/21/2023 In The 14 Days Before Symptom Onset, Have You Had Close Contact With A Laboratory-confi rmed COVID-19 While That Case Was Ill? No Information not available 06/21/2023 In The 14 Days Before Symptom Onset, Have You Had Close Contact With A Person Who Is Under Investigation For COVID-19 While That Person Was Ill? No Information not available 06/21/2023 Are You Currently Employed? No [email or web address] Information not available 10/18/2023 Are You Deaf Or Do You Have Serious Difficulty Hearing? No Information not available 06/21/2023 What Type Of Diet Are You Following? REGULAR [id number] Information not available 07/27/2022 Which Illicit Or Recreational Drugs Have You Used? None Information not available 06/21/2023 Do You Or Have You Ever Used E-cigarettes Or Vape? Never Used Electronic Cigarettes Information not available 06/21/2023 What Is The Highest Grade Or Level Of School You Have Completed Or The Highest Degree You Have Received? [id number] [email or web address] Information not available 10/18/2023 Do You Have An Electrostatic Air Filter? Yes [email or web address] Information not available 02/21/2024 What Is Your Occupation? Retired Information not available 06/21/2023 Have There Been Any Changes To Your Family Or Social Situation? No Information not available 06/21/2023 What Is The Fluoride Status Of Your Home? Unknown Information not available 06/21/2023 When Did You Quit Smoking? 16+yearssincelastc igarette Quit In 1973 Information not available 06/21/2023 Are There Any Guns Present In Your Home? No [email or web address] Information not available 10/18/2023 Do You Have A Humidifier? No [email or web address] Information not available 02/21/2024 Do You Use Insect Repellent Routinely? Yes Information not available 06/21/2023 Where Do You Live? SingleLevelHouse [email or web address] Information not available 02/21/2024 Presence Of Domestic Violence No [email or web address] Information not available 10/18/2023 Guns Present In The Home? No [email or web address] Information not available 10/18/2023 Are You Able To Care For Yourself? Yes Information not available 10/18/2023 Are You Blind Or Do Yo Have Difficulty Seeing? No [email or web address] Information not available 10/18/2023 Are You Deaf Or Do You Have Serious Difficulty Hearing? No [email or web address] Information not available 10/18/2023 General Stress Level? Low [email or web address] Information not available 10/18/2023 Live Alone Of With Others? With Others [email or web address] Information not available 10/18/2023 Do You Have A Medical Power Of Transfer Station Operator? Yes Information not available 06/21/2023 Do You Have Moisture Problems In Your Home? No [email or web address] Information not available 02/21/2024 What Was The Date Of Your Most Recent Tobacco Screening? 06/17/2024 Information not available 06/17/2024 Have You Ever Been Counseled For Unhealthy Alcohol Use? No [email or web address] Information not available 10/18/2023 Do You Have Any Pets? Yes Dog [email or web address] Information not available 10/18/2023 What Is Your Relationship Status? [id number] Information not available 07/27/2022 Do You Use Your Seat Belt Or Car Seat Routinely? Yes Information not available 06/21/2023 Do You Have Smoke And Carbon Monoxide Detectors In Your Home? Yes Information not available 06/21/2023 At What Age Did You Start Smoking Tobacco? 21 Information not available 06/21/2023 Are You Passively Exposed To Smoke? No Information not available 06/21/2023 Do You Or Have You Ever Used Smokeless Tobacco? Never Used Smokeless Tobacco [id number] Information not available 07/27/2022 Are There Any Smokers In Your House? No Information not available 06/21/2023 Do You Participate In Social Media? Yes Information not available 06/21/2023 Do You Feel Stressed (tense, Restless, Nervous, Or Anxious, Or Unable To Sleep At Night)? [id number] Information not available 06/21/2023 Do You Use Any Illicit Or Recreational Drugs? No Information not available 06/21/2023 Do You Use Sunscreen Routinely? Yes Information not available 06/21/2023 Have You Recently Traveled Abroad? No Information not available 06/21/2023 Do You Have Any Dietary Restrictions? No [email or web address] Information not available 10/18/2023 Do You Or Have You Ever Used Any Other Forms Of Tobacco Or Nicotine? No Information not available 10/18/2023 How Many Days In The Past Year Have You Consumed 5 Or More Drinks? -1 [email or web address] Information not available 10/18/2023 Sex: Male Functional Status Question Answer Note LastModified by Organizat ion Details LastModified Time Do you have difficulty walking or climbing stairs? No Information not available 06/21/2023 Do you have transportation difficulties? No Information not available 06/21/2023 Are you able to walk? [email or web address] Information not available 06/21/2023 Do you have difficulty doing errands alone? No Information not available 06/21/2023 Are you able to care for yourself? Yes Information n ot available 06/21/2023 Do you have difficulty dressing or bathing? No Information not available 06/21/2023 What is your exercise level? Occasional [id number] Information not available 07/27/2022 Mental Status Question Answer Note LastModified by Organization D etails LastModified Time Do you have difficulty concentrating, remembering or making decisions? No Information no t available 06/21/2023 Family History Relationship Description Onset Age of this Age Resolved Age Notes LastModified by Organization Details LastModified Time Father Leukemia [id number] Not available 07/27/2022 05:56:28 Sister Gallstone [id number] Not available 07/27/2022 05:56:28 Medical History Condition Response BLINDNESS N RHEUMATIC FEVER N KIDNEY STONES N BLADDER PROBLEMS N MRSA N OTHER # 1 N POLIO N LUNG DISEASE/DISORDER N HISTORY OF DRUG ABUSE N RADIATION / CHEMOTHERAPY N COPD N Other # 2 N BLOOD DISEASES N SURGERY N EAR OR HEARING PROBLEMS N MUMPS N SHINGLES N BOWEL PROBLEMS N FEMALE PROBLEMS / INFECTIONS N DEPRESSION (INCLUDING POST ) N STROKE/TIA N THYROID DISEASE N ULCERS N BENIGN PROSTATIC HYPERPLASIA N MEASLES N CERVICALGIA N HYPOTENSION N TB SKIN TEST N MYOCARDIAL INFARCTION N PARAPELGIA N OBESITY N GERD/NAUSEA N ANEURYSM N URINARY/BLADDER/KIDNEY PROBLEMS N CORONARY ARTERY DISEASE (CAD) N MENIERE'S DISEASE N ADDICTION CONCERNS N ENDOMETRIOSIS N USE OF BLOOD THINNERS N SKIN PROBLEMS N EMPHYSEMA N GASTROINTESTINAL DISORDER N MUSCLE,JOINT OR BONE PROBLEMS N GASTROINTESTINAL BLEEDING N BLOOD CLOTS N ASTHMA N CATARACTS N ERECTILE DYSFUNCTION N GI PROBLEMS Y CHF N Low Testosterone N NEUROPATHY N INFERTILITY N AIDS/HIV N FRACTURES N CHEMOTHERAPY / RADIATION N VISION/EYE PROBLEMS N LIVER DISEASE N MALE HYPOGONADISM N HYPERTENSION Y TOURETTE'S N ANXIETY DISORDER N BLOOD TRANSFUSION N ANEMIA/BLOOD DISORDER N CHRONIC EAR INFECTIONS N BRONCHITIS N TUBERCULOSIS N GLAUCOMA N FOOT PROBLEM N DIVERTICULITIS N CHICKENPOX N SLEEP APNEA N ALLERGIES/HAYFEVER N INFECTIOUS DISEASE N HEART ARRHYTHMIA N PROSTATE N INSOMNIA N HIGH CHOLESTEROL / HYPERLIPIDEMIA Y HYPERTHYROIDISM N EYE PROBLEMS N EATING DISORDER N EDEMA N CHRONIC PAIN SYNDROME N CONSTIPATION N CAROTID BLOCKAGE N BACK / NECK PROBLEMS N HAVE YOU BEEN HOSPITALIZED OR SEEN IN [facility] IN THE PAST YEAR ? N ATHEROSCLEROSIS N BREAST PROBLEMS N DIALYSIS N ECZEMA N FIBROMYALGIA N OSTEOPOROSIS N ARTHRITIS N NO SIGNIFICANT PAST MEDICAL HISTORY N APPENDICITIS N DIABETES, TYPE Y BAD TEETH N HEARTBURN / REFLUX N ADD/ADHD N AUTISM SPECTRUM DISORDER (ASD) N HEPATITIS / LIVER DISEASE N PULMONARY DISEASE N GOUT N SLEEP DISORDER N ALZHEIMER'S DISEASE N PAIN N HERPES N DEMENTIA N HEADACHES/MIGRAINES N SEIZURES/EPILEPSY N VASCULAR DISEASE N PACEMAKER N DIZZINESS N HEART DISEASE/HEART PROBLEMS N KIDNEY DISEASE N DEVELOPMENTAL OR BEHAVIORAL DISORDERS N MULTIPLE SCLEROSIS N SCARLET FEVER N MENTAL DISORDER/ILLNESS N CARDIAC ARRHYTHMIA N CANCER: SPECIFY N PNEUMONIA N ATRIAL FIBRILLATION N Gall Stones N PULMONARY EMBOLISM N AUTOIMMUNE DISEASE N Immunizations Vaccine Type Date Status Note Provider Nam e and Address Organization Details Recorded Time COVID-19, mRNA, LNP-S, PF, 100 mcg/0.5mL dose or 50 mcg/0.25mL dose 2 completed MONALISA Paiz [employer] 06/17/2024 10:49:29 COVID-19, mRNA, LNP-S, bivalent, PF, 50 mcg/0.5 mL or 25mcg/0.25 mL dose 2 completed MONALISA Paiz [facility] [employer] 06/17/2024 10:49:29 SARS-COV-2 (COVID-19) vaccine, UNSPECIFIED 2 completed Mary Richardson RMA null, [place] [facility] 06/17/2024 10:49:29 influenza, seasonal, intradermal, preservative free 2 completed Not Available [facility] 07/27/2022 06:08:22 COVID-19, mRNA, LNP-S, PF, 100 mcg/0.5mL dose or 50 mcg/0.25mL dose 1 completed Mary Richardson RMA null, [place] [facility] 06/17/2024 10:49:29 COVID-19, mRNA, LNP-S, PF, 100 mcg/0.5mL dose or 50 mcg/0.25mL dose 1 completed Mary Richardson RMA null, [place] [facility] 06/17/2024 10:49:29 zoster live 2 completed Mary Richardson RMA michelle, [facility] 06/17/2024 10:49:29 Td(adult) unspecified formulation 9 completed Not Available [facility] 07/27/2022 06:08:22 pneumococcal polysaccharide PPV23 0 completed Not Available [facility] 07/27/2022 06:08:22 Pneumococcal conjugate PCV 13 9 completed Mary Richardson RMA null, [facility] 06/17/2024 10:49:29 Td (adult), 5 Lf tetanus toxoid, preservative free, adsorbed 2 completed Not Available [facility] 07/27/2022 06:08:22 Past Encounters Encounter ID Performer Location Encounter Start Date Encounter Closed Date Diagnosis/Indication Diagnosis SNOMED-CT Code Diagnosis ICD10 Code Diagnosis Note [id number] [facility] [place] [address] [place] [id number] 12/08/2020 00:00:00 12/08/2020 15:32:35 [id number] [facility] [address] [address] 04/07/2021 00:00:00 04/07/2021 12:35:17 [id number] [facility] [place] [address] [place] [address] 06/10/2021 00:00:00 06/10/2021 10:27:32 [id number] [facility] [place] [address] [place] [address] 10/07/2021 00:00:00 10/07/2021 12:41:04 [id number] [facility] [place] [address] [place] [address] 12/01/2021 00:00:00 12/01/2021 15:40:02 [id number] [facility] [place] [address] [place] [address] 12/07/2021 00:00:00 12/07/2021 10:32:45 [id number] [facility] [place] [address] [place] [address], [place] [address] 02/23/2022 00:00:00 02/23/2022 11:36:53 [id number] [facility] [place] [address] [place] [address] 06/09/2022 00:00:00 06/09/2022 10:16:03 [id number] Renée Orellana, [facility]- [facility] [place] [address] [place] [address] 08/24/2022 09:50:21 08/24/2022 18:38:57 Obstructive sleep apnea syndrome 68540732 G47.33 Overnight study 08/07/17 with AHI 33.7.Constance ne set up 08/24/17Do wnload today for 30 days with 93% use greater than 4 hours.Annabelle ins on PAP 12 cm H2OAHI is 2.2He has good use and clinical benefitOSA is well correctedE ncouraged 100% compliance with all sleep, including napsFollow with PCM for labsAdvise d good sleep habits and patterns:- Set a goal for at least 7 to 8 hours of sleep time per day.-Use the bed mainly for sleep and to go to bed only when tired. If unable to fall asleep after 30 minutes, patient should get out of bed but should not engage in any activity that requires sustained mental alertness. -Maintain a regular bedtime and wake-up time even on weekends-A void excessive naps during the daytime. If a nap is necessary, limit it to no more than 30 minutes.-M inimize environmen mita noise, bright lights, and extremes in bedroom temperatur e.-Avoid alcohol, caffeinate d beverages, and nicotine products for at least 6 hours prior to bedtime.-A void strenuous exercise and large meals for at least 4 hours prior to bedtime.Or denae for new PAP machine todayOrder to switch to foam insert for full face maskRTC for compliance Fatigue 67733957 R53.83 MildOSA is well corrected [id number] Renée Orellana, [employer] [facility] [place] [address] [place] [address] 11/09/2022 09:56:33 11/09/2022 11:11:04 Obstructive sleep apnea syndrome 54566966 G47.33 Overnight study 08/07/17 with AHI 33.7.Zenaidai ne set up 08/24/17Ne w machine 08/31/22Do wnload today for 30 days with 90% use greater than 4 hours.Annabelle ins on PAP 12 cm H2OAHI is 2.5ESS 8He has good use and clinical benefitOSA is well correctedE ncouraged 100% compliance with all sleep, including napsFollow with PCM for labsAdvise d good sleep habits and patterns:- Set a goal for at least 7 to 8 hours of sleep time per day.-Use the bed mainly for sleep and to go to bed only when tired. If unable to fall asleep after 30 minutes, patient should get out of bed but should not engage in any activity that requires sustained mental alertness. -Maintain a regular bedtime and wake-up time even on weekends-A void excessive naps during the daytime. If a nap is necessary, limit it to no more than 30 minutes.-M inimize environmen mita noise, bright lights, and extremes in bedroom temperatur e.-Avoid alcohol, caffeinate d beverages, and nicotine products for at least 6 hours prior to bedtime.-A void strenuous exercise and large meals for at least 4 hours prior to bedtime.Di scussed supply cleaning and replacemen tRTC for compliance in 3 months, PRN for concerns Fatigue 80944414 R53.83 Mild, improvedOS A is well corrected [id number] Gina Isaac NP [facility] [address] [address] 12/28/2022 11:41:28 12/28/2022 16:11:12 Steatosis of liver 353404319 K76.0 Low fat diet Gastroesop hageal reflux disease 158469161 K21.9 Pantoprazo le daily. Recurrent falls 98071043 2 R29.6 [employer] use trying to get strength back. Hyperlipidemia 96596738 E78.5 Low fat diet. Atorvastat in 40 mg po nightly. Benign pro static hyperplasia 522344647 N40.[address] Brian Rain. Spinal eddie nosis of lumbar region 92788076 M48.061 Hasn't seen a specialist in a long time- unsure name. Using meloxicam and tramadol.P regabalin 75 mg tid.Believ es he would like imaging and to follow up with specialty again Hyperglycemia 52955297 R 73.9 Low fat and low carb, no real sugar. Metformin 500 mg po bid Ankylosing spondylitis 3078212 M45.5 Likely cause of pain and numbness in feet. Using meloxicam and tramadol.p regabalin tid. Recommende d to see spinal neurosurge on. Neuropathy 627287631 G62 .9 Pregabalin tid.Tramad ol 50 mg tidNeeds to schedule appt with neurosurge ry. Nocturia 594607696 R35.1 PSA. Not seeing Briseyda for a while. Sleep apnea 47751338 G47 .30 CPAP- was told at recent appt sleep was good on the CPAP machine.Un mack Johan had Narcolepsy .Renée Orellana is Pulm Unsteady when walking 22 038078 R26.89 Physical therapy ordered. Walker prn. [id number] Renée Orellana, [employer] [facility] [place] [address] [place] [address] 02/13/2023 10:20:28 02/13/2023 11:30:29 Obstructive sleep apnea syndrome 30805853 G47.33 Overnight study 08/07/17 with AHI 33.7.Origi nal hat forming machine feeder 08/24/17Ne w machine 08/31/22Do wnload today for 30 days with 93% use greater than 4 hours.Annabelle ins on PAP 12 cm H2OAHI is 1.1ESS 9He has good use and clinical benefitOSA is well correctedE ncouraged 100% compliance with all sleep, including napsFollow with PCM for labsAdvise d good sleep habits and patterns:- Set a goal for at least 7 to 8 hours of sleep time per day.-Use the bed mainly for sleep and to go to bed only when tired. If unable to fall asleep after 30 minutes, patient should get out of bed but should not engage in any activity that requires sustained mental alertness. -Maintain a regular bedtime and wake-up time even on weekends-A void excessive naps during the daytime. If a nap is necessary, limit it to no more than 30 minutes.-M inimize environmen mita noise, bright lights, and extremes in bedroom temperatur e.-Avoid alcohol, caffeinate d beverages, and nicotine products for at least 6 hours prior to bedtime.-A void strenuous exercise and large meals for at least 4 hours prior to bedtime.Di scussed supply cleaning and replacemen tHe should follow up in one year Fatigue 47805142 R53.83 MildOSA is well corrected [id number] Corwin cruz MD [facility] [address] [facility] [place] [address] 06/21/2023 17:21:54 06/23/2023 12:31:47 Screening - NAD 896835464 Z13.9 C-scope: Get this done Get yearly flu shotUTD Tdap 12/07/2021 UTD PCV #13 and 23Can do shingrix vaccineGet COVID 19 boosterCan do RSV vaccine RTC in 3 months, do labs, ER if worse, he did verbalize his understand ing of the above Screening for malignant neoplasm of colon 075197331 Z12.11 Coronary arteriosclerosis 54697270 I25.10 Dr Jimenes 06/02/2023 , f/u in 3 months On ASAOn plavixOn lisinopril 5mg dailyOn metoprolol ER 25mg dailyGet labs Hyperlipidemia 80693083 E78.5 On ASAOn atorvastat in 40mg dailyGet labs Screening for malignant neoplasm of prostate 580183020 Z12.5 Vitamin D deficiency 347 21411 E55.9 Gastroesop hageal reflux disease without esophagitis 010677562 K21.9 On pantoprazo le 40mg daily, take PRN, should get EGD done Urinary incontinence 165 924617 R32 On flomax Chronic pain 74921570 G8 9.29 As per his historyDr Harley Carson 02/21/2023 : NSDr Messi Lea 03/01/2023: NCV doneDr Elaine Rodriguez 04/26/2023 : Neurologis t, was told to get MRIMRI 01/03/2023 Hx of spinal stenosisOn meloxicam, take ONLY as needed with food!On tramadol 50mg po bid, advised to take PRNOK to fill if taking PRN and sparingly Neuropathy 659643101 G62 .9 On Lyrica 75mg po tid, does well on this Type 2 toshia betes mellitus without complication 194617028 E11.9 On metformin 500mg po bidGet labs Ex-cigarette smoker 2810 98226 Z87.891 Get US AAA [id number] Pradip Murdock DPM [facility] [place] [address], [place] [address] [place] [address] 07/04/2023 10:50:16 07/04/2023 11:19:18 Avulsion of toenail of right foot 0373068549 3246627 S91.201A right great toehealed 30% regrownall ow to grow outfollow up as needed Onychomyco sis of toenails 459150313 B35.1 left great toenailrev iewed treatment optionspat ient will return for total nail avulsion of the left great toe [id number] Corwin cruz MD [facility] [address] [facility] , [place] [address] 10/18/2023 10:10:00 10/18/2023 11:21:41 Screening - NAD 224968338 Z13.9 C-scope: Dr Sheridan 02/02/2022 , repeat in 5 to 10 years Get yearly flu shotUTD Tdap 12/07/2021 UTD PCV #13 and 23Can do shingrix vaccineGet COVID 19 boosterCan do RSV vaccine RTC in 3 months, do labs, ER if worse, he did verbalize his understand ing of the above Screening for malignant neoplasm of colon 506311801 Z12.11 Coronary arteriosclerosis 87731555 I25.10 Dr Jimenes 06/02/2023 , f/u in 3 months On ASAOn plavixOn lisinopril 5mg dailyOn metoprolol ER 25mg dailyGet labs Hyperlipidemia 00182405 E78.5 On ASAOn atorvastat in 40mg dailyGet labs Screening for malignant neoplasm of prostate 809326995 Z12.5 Vitamin D deficiency 347 68212 E55.9 Gastroesop hageal reflux disease without esophagitis 309192387 K21.9 On pantoprazo le 40mg daily, take PRN, should get EGD done Urinary incontinence 165 492614 R32 On flomaxOn gemtesaGiv en by Dr Paul urology Chronic pain 20474803 G8 9.29 As per his historyDr Harley Carson 02/21/2023 : NSDr Messi Lea 03/01/2023: NCV doneDr Elaine Rodriguez 04/26/2023 : Neurologis t, was told to get MRIMRI 01/03/2023 Hx of spinal stenosisOn meloxicam, take ONLY as needed with food!On tramadol 50mg po bid, advised to take PRN, refilled today 10/18/2023 , explained in detail regarding use of tramadol and its side effects, he is now agreeable to see pain management OK to fill if taking PRN and sparingly Neuropathy 042185387 G62 .9 On Lyrica 75mg po tid, does well on thisGet a referral to neurology Type 2 toshia betes mellitus without complication 016230560 E11.9 On metformin 500mg po bidGet labs Ex-cigarette smoker 2810 94946 Z87.891 Get US AAA Acute pancreatitis 30451 6007 K85.90 [facility] ER 10/04/2023 Liver enzy mes level above reference range 094754912 R74.[address] Causey 09/06/2023 To get EGD/C-scop e Adult heal th examination 313836548 Z00.00 Screening for disorder 260071134 Z13.9 Pain in both feet 729968 2282 3012965 M79.671 M79.269 [id number] Pradip Murdock DPM [facility] [place] [address] [place] [address], [facility] 4 [place] [address] 10/26/2023 10:46:10 10/26/2023 11:49:19 Onychomycosis of toenails 319609695 B35.1 left great toenailrev iewed treatment optionstod ay- total nail avulsion of the left great toefollow- up 1 week- ketoconazo le Rx at that time [id number] Pradip Murdock DPM [facility] [place] [address] [place] [address], [facility] [address] [place] [address] 11/02/2023 11:48:14 11/03/2023 13:56:49 Avulsion of toenail of right foot 6936854543 3261390 S91.201A right great toe - Great toenail healedallo w to regrow completely follow-up 4 months [id number] Corwin cruz MD [facility] [place] [facility] [address] [facility] , [place] [address] [facility] [place] [address] 02/19/2024 09:55:39 02/19/2024 10:52:10 Screening - NAD 538221550 Z13.9 C-scope: Dr Sheridan 02/02/2022 , repeat in 5 to 10 years Get yearly flu shotUTD Tdap 12/07/2021 UTD PCV #13 and 23Can do shingrix vaccineGet COVID 19 boosterCan do RSV vaccine RTC in 3 months, do labs, ER if worse, he did verbalize his understand ing of the above Coronary arteriosclerosis 30412927 I25.10 Dr Jimenes 06/02/2023 , f/u in 3 months On ASAOn plavixOn lisinopril 2.5mg daily Dr Musa metoprolol ER 25mg dailyGet labs Hyperlipidemia 25433442 E78.5 On ASAOn atorvastat in 40mg dailyGet labs Vitamin D deficiency 347 03669 E55.9 Gastroesop hageal reflux disease without esophagitis 297203887 K21.9 On pantoprazo le 40mg daily, take PRN, should get EGD done EGD 12/13/2023 Urinary incontinence 165 954922 R32 On flomaxOn gemtesaGiv en by Dr Paul urology Chronic pain 72721357 G8 9.29 As per his historyDr Harley Carson 02/21/2023 : NSDr Messi Lea 03/01/2023: NCV doneDr Elaine Rodriguez 04/26/2023 : Neurologis t, was told to get MRIMRI 01/03/2023 Hx of spinal stenosisOn meloxicam, take ONLY as needed with food!On tramadol 50mg po bid, advised to take PRN, refilled today 10/18/2023 , explained in detail regarding use of tramadol and its side effects, he is now agreeable to see pain management OK to fill if taking PRN and sparingly OV 02/19/2024 :On lyrica 75mg bidOn tramadol 50mg bidSees Dr Hennessy Neuropathy 810203491 G62 .9 On Lyrica 75mg po bid, does well on thisDid see Dr Fatima 11/20/2023 Type 2 toshia betes mellitus without complication 446343735 E11.9 On metformin 500mg po bidGet labs Ex-cigarette smoker 2810 21959 Z87.891 US AAA 07/03/2023 : Neg Acute pancreatitis 49521 6007 K85.90 [facility] ER 10/04/2023 Liver enzy mes level above reference range 310144502 R74.[address] Causey 09/06/2023 S/p EGD Pain in both feet 793322 [address] Murdock 11/02/2023 , next apt 02/29/2024 , have advised him to use a walker as he does c/o unsteadine ss of his feet Obstructiv e sleep apnea syndrome 35765626 G47.33 Sees Renée Orellana [employer] 02/21/2024 Unsteady when walking 22 321155 R26.89 Noted to have neuropathy , advised to use his walker, did offer PT to eval and treat but he declined 02/19/2024 [id number] Natalia Varela MD [facility] [place] [address] [facility], [facility] [address] [place] [address] 02/21/2024 10:06:22 02/21/2024 15:41:11 Obstructive sleep apnea syndrome 96713501 G47.33 [id number] Pradip Murdock DPM [facility] [place] [address] [facility], [facility] [address] [place] [address] 02/29/2024 09:52:14 03/01/2024 12:39:23 Onychomycosis of toenails 867456243 B35.1 left great toenailmay continue ketoconazo le until nail has regrownlef t great toe is normal in naturefoll ow-up 4 months [id number] Corwin cruz MD [facility] [address] [facility] [address] [place] [address] 06/17/2024 10:42:13 06/17/2024 11:11:03 Screening - NAD 272720559 Z13.9 C-scope: Dr Sheridan 02/02/2022 , repeat in 5 to 10 years Get yearly flu shotUTD Tdap 12/07/2021 UTD PCV #13 and 23Can do shingrix vaccineGet COVID 19 boosterCan do RSV vaccine RTC in 3 months, do labs, ER if worse, he did verbalize his understand ing of the above Coronary arteriosclerosis 01394203 I25.10 Dr Jimenes 12/08/2023 , f/u in 3 months On ASAOn plavixOn lisinopril 5mg daily Dr Jimenes increased on 12/08/2023 On metoprolol ER 25mg dailyGet labs Hyperlipidemia 22656562 E78.5 On ASAOn atorvastat in 40mg dailyGet labs Vitamin D deficiency 347 42327 E55.9 Gastroesop hageal reflux disease without esophagitis 381432320 K21.9 On pantoprazo le 40mg daily, take PRN, should get EGD done EGD 12/13/2023 Urinary incontinence 165 442567 R32 On flomaxOn gemtesaGiv en by Dr Paul urology Chronic pain 04972568 G8 9.29 As per his historyDr Harley Carson 02/21/2023 : NSDr Messi Lea 03/01/2023: NCV doneDr Elaine Contrerassunni 04/26/2023 : Neurologis t, was told to get MRIMRI 01/03/2023 Hx of spinal stenosisOn meloxicam, take ONLY as needed with food!On tramadol 50mg po bid, advised to take PRN, refilled today 10/18/2023 , explained in detail regarding use of tramadol and its side effects, he is now agreeable to see pain management OK to fill if taking PRN and sparingly OV 02/19/2024 :On lyrica 75mg bidOn tramadol 50mg bidSees Dr Hennessy OV 06/17/2024 :On Lyrica 75mg bidOn tramadol 50mg bidFilled by Dr Hennessy pain management Neuropathy 529907423 G62 .9 On Lyrica 75mg po bid, does well on thisDid see Dr Fatima 11/20/2023 Type 2 toshia betes mellitus without complication 571183413 E11.9 On metformin 500mg po bidGet labs Eye exam: Ifeoma Angella OD 04/08/2024 Ex-cigarette smoker 2810 38062 Z87.891 US AAA 07/03/2023 : Neg Acute pancreatitis 41263 6007 K85.90 [facility] ER 10/04/2023 Liver enzy mes level above reference range 057760714 R74.[address] Causey 01/11/2024 , f/u in 6 monthsS/p EGD Pain in both feet 245892 [address] Rosario ve advised him to use a walker as he does c/o unsteadine ss of his feet Obstructiv e sleep apnea syndrome 87422749 G47.33 Sees Renée Orellana [employer] 02/21/2024 Unsteady when walking 22 554164 R26.89 Noted to have neuropathy , advised to use his walker, did offer PT to eval and treat but he declined 02/19/2024 [id number] Pradip Murdock DPM [facility] [address] [place] [address] 07/16/2024 09:45:12 07/16/2024 10:17:56 Dystrophia unguium 79721082 L60.3 Nails 1 through 10 were debrided with sharp mechanical debridemen t without incident. Nails were debrided and greater than 50% length and thickness where needed.Fol low-up as neededrevi ewed treatment options due to recurrent thickening of the left great toenail and thickening of the right great toenail patient defers any further surgical interventi on. Patient would like to continue with conservati ve therapy at home with nail debridemen ts. Health Concerns Section Related Observation LastModified by Organization Detai ls LastModified Time None Recorded Concern Status LastModified by Organization Details LastModified Time None Recorded Advance Directives Directive Y: Payers Encounter Date Sequence Insurance Name Policy Number Policy Burgos Covered Member ID Burgos Member ID Guarantor Name 02/19/2024 1 [place] Jorge Bonilla [id number] Jorge Bonilla 02/19/2024 2 [place] [id number] Jorge Bonilla [id number] Jorge Bonilla 02/21/2024 1 [place] Bonilla [id number] Jorge Bonilla 02/21/2024 2 [place] [id number] Jorge Bonilla [id number] Jorge Bonilla 02/29/2024 1 [place] Bonilla [id number] Jorge Bonilla 02/29/2024 2 [place] [id number] Jorge Bonilla [id number] Jorge Bonilla 06/17/2024 1 [place] Jorge Bonilla [id number] Jorge Bonilla 06/17/2024 2 [place] [id number] Jorge Bonilla [id number] Jorge Bonilla 07/16/2024 1 [place] Jorge Bonilla [id number] Jorge Bonilla 07/16/2024 2 [place] [id number] Jorge Bonilla [id number] Jorge Bonilla Notes Date Note Type Note Provider Name and Address Organization Details Recorded Time 02/19/2024 text/html OV 06/21/2023:He re to establish care Past Hx:CADHLDDMIINeuropath yChronic painEx smoker Reviewed social family and surgical history Here to discuss above and get labs OV 10/18/2023: Here for his f/u apt and also for MWV, he wants to discuss his use of pain meds,he is also s/p d/c from hospital for acute pancreatitis, d/c on 10/05/2023, much improved now, on regular diet, no blood in stool or urine, mild abdominal 'achyness', no acute pain, no distension, no N/V/diarrhea or constipation, normal appetiteHe wants his refill of his pain medsHe also has seen his urologist and is now on gemtesa OV 02/19/2024: Here for his f/u apt, he is doing well today Corwin Crowe MD [address] [place] [address], [place] [address], [place], [address], [facility] [employer] 02/26/2024 17:59:46 02/21/2024 text/html Primary care/Ref erring provider: Corwin Crowe MD CC: My would nudge me when my CPAP noise annoys her. Then I would take the CPAP mask off and turn the machine off. Hence the low compliance rate. During the [facility] diagnostic sleep study on 08/07/17, sleep onset = 10.5 minutes, REM onset = 145.5 minutes, AHI = 34, supine AHI = 43, PLMI = 0.0. During the [facility] titration sleep study on 05/12/28, sleep onset = 16.5 minutes, REM onset = 279 minutes, PLMI = 0.0. At home since 02/13/23, ResMed AirSense 11 autoset unit with heated humidification. The patient does not need the ramp to start low and go up slowly on the pressure anymore. There is no xerostomia in a.m. There is no hose/mask condensation with water.The patient wears a [employer]Med medium AirFift F20 full face mask without chin strap. There is no claustrophobia, no nostril/nose bridge irritation, no facial rash, no facial numbness, no nosebleeding. The patient feels slightly refreshed upon waking and daytime alertness is mildly improved. Energy levels are sustained for 2 hours after waking up. At home, the patient sleeps from 9:30 pm to 7 am and wakes up with an alarm 3/7 days a week. Snoring: heavy, since 1970s.Snorting: noChoking: noCoughing: noGasping: noGagging: noSighing: noWitnessed apnea: yesTwitching or jerking of leg(s), arm(s), body, head: noTeeth grinding: noTeeth clenching: noSleeptalking: noSleepwalking: noSleep crying: noBedwetting: noTongue/lip/gum/cheek biting: noSleeping with open mouth: yesSleep paralysis: noHypnagogic hallucinations: noHypnopompic hallucinations: noVivid dreams: yesDifficulty with sleep onset: noDifficulty with sleep maintenance: yesSleep interruptions: for no known reasonsPatient wakes up with: fatigueDaytime cataplexy: noMorning hypersomnolence: yesAfternoon hypersomnolence: yesCaffeine sources in diet: coffee 2 cups per day, tea 1 cup per day, soda 2 cans per day, chocolate 1 candy bar per week Associated medical and psychiatric conditions:Congestive heart failure: noCoronary artery disease: yesMyocardial infarction: yesHypertension: yesStroke: noBronchial asthma: noChronic obstructive pulmonary disease: noDepression: noBipolar disorder: noAnxiety: noPanic disorder: noPosttraumatic stress disorder: noAttention deficit and hyperactivity disorder: noObsessive Compulsive disorder: noSchizophrenia: noSchizoaffective disorder: noPersonality disorder: noChronic analgesic use: noChronic sedative/hypnotic use: no EPWORTH SLEEPINESS SCALE (ESS) CHANCE OF DOZING SCORE0 = would never doze1 = slight chance of dozing2 = moderate chance of dozing3 = high chance of dozing SITUATION AND CHANCE OF DOZINGSitting and reading - 2Watching television - 2Sitting inactive in a public place (e.g. a theater or meeting) - 0As a passenger in a car for an hour without a break - 0Lying down to rest in the afternoon when circumstances permit - 3Sitting and talking to someone - 0Sitting quietly after lunch without alcohol - 0In a car, while stopped for a few minutes in the traffic - 0TOTAL SCORE 7Subjectively, patient has a slight chance of dozing. Natalia Varela MD [address] [facility], [place] [address], [place], [address], [employer] 02/21/2024 11:17:36 02/29/2024 text/html . Patient is a 78-year-old male who returns the office for total nail avulsion of the left great toenail he is regrowing the nail it is normal in nature. Patient does not have any thickness or discoloration of the toenail. Patient denies any other complaints. Pradip Murdock DPM [address], [facility] [address], [place], [address], [employer] 02/29/2024 10:38:46 06/17/2024 text/html OV 06/21/2023:He re to establish care Past Hx:CADHLDDMIINeuropath yChronic painEx smoker Reviewed social family and surgical history Here to discuss above and get labs OV 10/18/2023: Here for his f/u apt and also for MWV, he wants to discuss his use of pain meds,he is also s/p d/c from hospital for acute pancreatitis, d/c on 10/05/2023, much improved now, on regular diet, no blood in stool or urine, mild abdominal 'achyness', no acute pain, no distension, no N/V/diarrhea or constipation, normal appetiteHe wants his refill of his pain medEusebia also has seen his urologist and is now on gemtesa OV 02/19/2024: Here for his f/u apt, he is doing well today OV 06/17/2024: Here for his routine apt, he is doing well today, no recent labs Corwin Crowe MD [address], [place], [address], [facility] 06/17/2024 11:11:40 07/16/2024 text/html . Patient is a 78-year-old male who returns the office for follow-up on left great toenail avulsion. Patient states the nails approximately 50% regrown he continues have thickening of the nail he states that he has had some improvement but overall he still has some thickening. Patient denies any pain to the toenail. Patient was reviewed other options including total nail matrixectomy which the patient states at this point he will just allow the nail to continue to regrow and he will keep it shaved down himself. Patient denies any other complaints. Pradip Murdock DPM [address], [place], [address], [employer] 07/16/2024 10:11:55
--- OUTSIDE RECORDS SUMMARY | 2024-09-02 17:36 | XMS_ITS | Clinical Summary ---
Author Organization [facility] Address [facility] [place] [address] Care Team Providers Care Senior Grant Writer Name Role Phone Anish Crowe MD Primary [...] Active Active Problems No known active problems Surgical History Surgery Date Site/Laterality Comments GALLBLADDER SURGERY 05/29/1989 - 05/28/1990 Medical History Medical History Date Comments Heart attack (HCC) 09/02/2019 Social History Tobacco Use Types Packs/Day Years [...] on file Sexual Orientation Not on file Obstetrics History Last Filed Vital Signs Vital Sign Reading [...] 11/20/2023 10:58 AM CDT Plan of Treatment Health Maintenance Due Date Last Done Comments Depression Screening 1945 Fall Risk Assessment 1945 Hepatitis C Screening 1945 Hepatitis B Screening 08/26/1965 DTaP/Tdap/Td Vaccine (1 - Tdap) 11/06/2008 9 Zoster Vaccine (2 of 3) 06/06/2012 04/11/2012 Well Visit 65+ 08/26/2012 Covid-19 Vaccine (5 - 2023-2 5 season) 2024 03/09/2022, 06/29/2021, 07/27/2020, Additional history exists Influenza Vaccine (Season Ended) 2025 Pneumococcal vaccine 65+ Completed 01/15/2020, 06/29 Insurance MEDICARE [facility] Care Teams Senior Grant Writer Relationship Specialty Start Date End Date Anish Crowe MD [address] [facility] [address] [place] [address] PCP - General Internal Medicine 11/10/23
[2024-09-02 18:06] LABS: Lipase 182 U/L (23-300)
[2024-09-02 18:33] LABS: Alanine Aminotransferase 34 U/L (6-50); Albumin Level 4.5 g/dL (3.5-5.1); Alkaline Phosphatase 121 U/L (38-126); Anion Gap 13 mmol/L (4-12); Aspartate Amino Transferase 28 U/L (17-59); Bilirubin,Total 0.4 mg/dL (0.2-1.3); Blood Urea Nitrogen 16 mg/dL (9-20); Calcium 9.2 mg/dL (8.4-10.2); Carbon Dioxide 26 mmol/L (22-30); Chloride 98 mmol/L (98-107); Estimated CRCL calculation 43 ml/min; Estimated Glomerular Filt Rate 52; Glucose 98 mg/dL (65-110); Potassium 4.4 mmol/L (3.4-5.0); Sodium 137 mmol/L (137-145)
[2024-09-02 18:58] LABS: Troponin I < 0.012 ng/mL (0.000-0.034)
--- OUTSIDE RECORDS SUMMARY | 2024-09-02 19:10 | XMS_ITS | Clinical Summary ---
Author Organization [facility] Address [facility] [place] [address] Care Team Providers Care Template Clerk Name Role Phone Anish Crowe MD Primary [...] vaccine 65+ Completed 01/15/2020, 06/29 Insurance MEDICARE [facility] Care Teams Template Clerk Relationship Specialty Start Date End Date Anish Crowe MD [address] [facility] [address] [place] [address] PCP - General Internal Medicine 11/10/23
--- OUTSIDE RECORDS SUMMARY | 2024-09-02 19:10 | XMS_ITS | CONTINUITY OF CARE DOCUMENT ---
Author Name tamara mcdonald Address Unknown Organization [facility] Address [address] [facility] [address] [place] [address] Phone [phone] Care Team Providers Care Manager Gaming Name Role Phone Jalil PRATT, Jose Miguel Delarosa Unavailable [phone] Betty Causey MD Unavailable [phone] CORWIN BRYAN MD Unavailable PROBLEMS Condition Status Date Provider Notes Shortness [...] encounter Office Visit Jose Miguel Jimenes MD [facility] 4 - 4 In-person encounter Office Visit Jose Miguel Jimenes MD [facility] 2 - 2 In-person encounter Office Visit Jose Miguel Jimenes MD [facility] 5 - 5 In-person encounter Office Visit Jose Miguel Jimenes MD [facility] 3 - 3 In-person encounter Office Visit Jose Miguel Jimenes MD [facility] 7 - 7 In-person encounter Office Visit Jose Miguel Jimenes MD [facility] 6 - 3 In-person encounter Office Visit Jose Miguel Jimenes MD [facility] 2 - 7 In-person encounter Office Visit Jose Miguel Jimenes MD [facility] Acute pancreatitis with uninfected necrosis, unspecifiedPreop cardiovasc. examination 1 - 1 In-person encounter Office Visit Jose Miguel Jimenes MD [facility] Covid vaccine Moderna 9 - 9 In-person encounter Office Visit Jose Miguel Jimenes MD [facility] 0 - 6 In-person encounter Office Visit Jose Miguel Jimenes MD [facility] Prediabetes 2 - 3 In-person encounter Office Visit Jose Miguel Jimenes MD [facility] Dizziness 7 - 7 In-person encounter Office Visit Jose Miguel Jimenes MD [facility] Hx of NSTEMI 2 - 3 In-person encounter Office Visit Jose Miguel Jimenes MD [facility] EKGCADSleep apneaHypertensionHyperlipidemia VITAL SIGNS Date Observation Value Provider Body Mass Index (Ratio) 27.75 kg/m2 Freeman Boyle blood pressure, diastolic 65 mm[Hg] Radha Rodriguez blood pressure, systolic 118 mm[Hg] Yolanda polk Rodriguez oxygen saturation, oximetry 96 % Radha Rodriguez pulse rate 65 /min Radha Rodriguez respiratory rate E&M 12 /min Radha [place] weight E&M 199 [lb_av] Radha Rodriguez height E&M 71 [in_i] Radha [place] blood pressure, cuff size regular Radha ponce [place] Body Mass Index (Ratio) 26.50 kg/m2 Daryn [...] shah pulse rate 69 /min Whitley [facility] weight E&M 190 [lb_av] Whitley [facility] height E&M 71 [in_i] Whitley [facility] Body Mass Index (Ratio) 25.94 kg/m2 Miky [...] mm[Hg] [facility]Log blood pressure, systolic 123 mm[Hg] [facility] blood pressure, cuff size regular Fa [facility] blood pressure, diastolic 90 mm[Hg] [facility] blood pressure, systolic 123 mm[Hg] [facility], [facility]ximetry 97 % [facility] respiratory rate E&M 16 /min Ankita Kristal [facility] pulse rate 73 /min [facility] weight E&M 193 [lb_av] [facility] height E&M 71 [in_i] [facility] Body Mass Index (Ratio) 27.33 kg/m2 Daryn Jimenes MD blood pressure, diastolic 63 mm[Hg] [facility], systolic 123 mm[Hg] Lazara [...] Shy mojica weight E&M 196 [lb_av] Kimmy Iglesia height E&M 71 [in_i] Kimmy Iglesia Body [...] Jasmine Van oxygen saturation, oximetry 96 % [facility] pulse rate 73 /min [facility] weight E&M 188.0 [lb_av] [facility] height E&M 71 [in_i] [facility] Body Mass Index (Ratio) 28.87 kg/m2 Willie [...] blood pressure, diastolic 75 mm[Hg] Cy laureano Carlson blood pressure, systolic 127 mm[Hg] Serenity okeefe Carlson weight E&M 203 [lb_av] Katerine Eyalbel l height E&M 71 [in_i] Katerine Eyalbel l Body Mass Index (Ratio) 27.89 kg/m2 Daryn Jimenes MD blood pressure, resting No Tons estevez Juarez respiratory rate E&M 16 /min [facility] blood pressure, diastolic 73 mm[Hg] To [facility] blood pressure, systolic 143 mm[Hg] Ton [facility] oxygen saturation, oximetry 96 % [facility] pulse rate 86 /min [facility] weight E&M 200 [lb_av] [facility] height E&M 71 [in_i] [facility] temperature site temporal Laury Tank sley temperature E&M 97.5 [degF] Laury [facility] johana ALLERGIES Allergy Name Onset Date Reaction [...] High 0 cholesterol, serum 125 mg/dL [facility] [phone]/10/3 0 basophil count, absolute 0.1 x10E3/uL [facility] [...] Estab. 0 platelet count 224 X10E3/UL [facility] 483-170 9815/10/3 0 red blood cell distribution width 13.2 [...] 3.5-5.2 0 sodium, serum 140 mmol/L [facility] 222-417 7704/10/3 0 urea nitrogen/creatinine ratio, serum 18 [employer] [...] by mouth once a day - [facility] 40 mg tablet active TAKE 1 TABLET BY MOUTH DAILY [facility] clopidogrel 75 mg tablet active [...] History: Adriana zaidi has never smoked. Brian Estarda social history reviewed E&M revi ewed - no changes required Brian Estrada smoking status Never smoker [facility] FUNCTIONAL STATUS Date Observation Value Provider [...] Payer name Policy type / Coverage type [place] red republican ID [facility] [id number] [place] Medicare [id number] ADVANCE DIRECTIVES Name Date DISCUSSED - NO DECISION MADE TREATMENT PLAN Date Name Performer [id number],C, T he patient is using CPAP on a regular basis. The patient has been benefiting from therapy and should continue use. Jose Miguel Jimenes MD [id number],C,6.0 A1C WILL RECHECK Jose Miguel Jimenes MD [id number],C, H ad stents to RCA and LCX. [...] no ischemia noted. Jose Miguel Jimenes MD [id number],C, H is updated medication list for this problem includes: Atorvastatin 40 Mg Tablet (Atorvastatin) ..... Take 1 tablet by mouth daily H E IS HERE TO DISCUSS THE LPa AND QUALIFIES FOR OCEAN(a) STUDY AND WANTS TO ENROLL LPa WAS 221 HE HAS HAD STENTS TO HEART AND PRIOR NSTEMI Jose Miguel Jimenes MD [id number],C, B P today: 123/63 P rior BP: [...] once a day Jose Miguel Jimenes MD [id number],C, H is updated medication list for this problem includes: Atorvastatin 40 Mg Tablet (Atorvastatin) ..... Take 1 tablet by mouth daily Jose Miguel Jimenes MD [id number],S,r eviewed RPM bps are well controlled at home and no new med rx. Jose Miguel Jimenes MD [id number],C, H ad stents to RCA and LCX. [...] no ischemia noted. Jose Miguel Jimenes MD [id number],B, Jose Miguel sherman MD [id number],C,C heck carotids L ikely related to orthostatic positional changes. Recommended Na+ liberation in diet. Jose Miguel Jimenes MD [id number],S,C heck carotids L ipid panel reviewed. Numbers are favorable. H is updated medication list for this problem includes: Atorvastatin Calcium 40 Mg Oral Tablet (Atorvastatin calcium) ..... Take one tablet daily Jose Miguel Jimenes MD [id number],C, H ad stents to RCA and LCX. [...] no ischemia noted. Jose Miguel Jimenes MD [id number],C,C urrently taking 2.5mg Lisinopril Discussion of benefits [...] once a day Jose Miguel Jimenes MD [id number],SP parmjit on getting colonoscopy done Okay to come off plavix 3-5 days prior to colonoscopy. Dr Sheridan at [place] Jose Miguel Jimenes MD [id number],C, T he patient is using CPAP on a regular basis. The patient has been benefiting from therapy and should continue use. Jose Miguel Jimenes MD [id number],C,H ad Pancreatitis in 08/2021, check LFTs and Lipase. Jose Miguel Jimenes MD [id number],S, V accined planning on getting booster N ever got covid yet Jose Miguel Jimenes MD [id number],C, S tarted metformin Jose Miguel Jimenes MD [id number],C, H is updated medication list for this [...] HDL: 31 (03/27/2021) Jose Miguel Jimenes MD [id number],C, H ad stents to RCA and LCX. [...] no ischemia noted. Jose Miguel Jimenes MD [id number],C,I ncrease lisinopril to 5 had high BP [...] by mouth daily Jose Miguel Jimenes MD [id number],C,V accined planning on getting booster Jose Miguel Jimenes MD [id number],C,Started metfo rmin Jose Miguel Jimenes MD [id number],C, T he patient is using CPAP on a regular basis. The patient has been benefiting from therapy and should continue use. Jose Miguel Jimenes MD [id number],C, H ad stents to RCA and LCX. [...] no ischemia noted. Jose Miguel Jimenes MD [id number],C, L ipid panel reviewed. Numbers are favorable. H is updated medication list for this problem includes: Atorvastatin Calcium 40 Mg Oral Tablet (Atorvastatin calcium) ..... Take one tablet daily Jose Miguel Jimenes MD [id number],C, H ad stents to RCA and LCX. Remaining on DAPT for 12 months. Currently remains on DAPT. Reviewed option of coming off of Plavix and staying on ASA alone. Jose Miguel Jimenes MD [id number],C, B P today: 122/60 P rior BP: [...] by mouth daily Jose Miguel Jimenes MD [id number],C, T he patient is using CPAP on a regular basis. The patient has been benefiting from therapy and should continue use. Jose Miguel Jimenes MD [id number],C, L LE great toe evulsed nail growing back. Saw podiatry. Had ANABEL 1.1 occluded L MAKAYLA. Will have podiatry comment, if they think his foot needs to have MAKAYLA revascularized even though it is probably adequately collateralized Jose Miguel Jimenes MD [id number],C, A 1C up to 6.0, recommended for him to see PCP and get medical mangement. Possibly start metformin or oral hypoglycemic March 26, 2021 N eeds to be evaluated for prediabetes by PCP, would like him to be started on Metformin or otherwise consider for STEPHF Jose Miguel Jimenes MD [id number],S, L ikely related to orthostatic positional changes. [...] days prior to colonoscopy. Dr Sheridan at [place] Jose Miguel Jimenes MD Cardiology: T he [...] not on an BERNARDO or BB post SC. Will give low doses to see if [...]
--- OUTSIDE RECORDS SUMMARY | 2024-09-02 19:10 | XMS_ITS | Referral Summary ---
Author Organization [facility] Address [address] [place] [address] Care Team Providers Care Quality Assurance Technician Name Role Phone Anish Crowe MD [...] of Treatment Not on file Insurance MEDICARE [facility] Care Teams Quality Assurance Technician Relationship Specialty Start Date End Date Anish Crowe MD [address] [place] [address] PCP - General Internal Medicine 11/10/23
--- OUTSIDE RECORDS SUMMARY | 2024-09-02 19:10 | XMS_ITS | Clinical Summary ---
Author Organization [facility] Address [address] [place] [address] Care Team Providers Care Tree Puller Name Role Phone Gina Isaac Gulshan JAUREGUI-TITLE CLOSER Primary Care Provider Source Comments [facility],non-owned Affiliates and Associated Physician Practices is amultiple site organization consisting of ambulatory clinics and hospital sitesin [place], [place], [place] and [place]. This disclosure is being madepursuant to the Care Everywhere program and may not contain all information available regarding this patient. 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 [employer] Pulse 81 07/30/2015 8:34 AM ASSISTANT [employer] Temperature 36.7 C (98.1 F) 07/30/2015 8:34 AM ASSISTANT [employer] Respiratory Rate 16 07/30/2015 8:34 AM ASSISTANT [employer] Oxygen Saturation - - Inhaled Oxygen Concentration - - Weight 85.5 kg (188 lb 6.4 oz) 07/30/2015 8:34 A M [employer]IST[employer] Height 177.8 cm (5' 10 ) 07/30/2015 8:34 AM ASSISTANT [employer] Body Mass Index 27.03 07/30/2015 8:34 AM ASSISTANT [employer] OF [employer] Plan of Treatment Health Maintenance Due Date [...] age to complete this topic Care Teams Tree Puller Relationship Specialty Start Date End Date Gina Isaac, TOBY MAKER-TITLE CLOSER [address] [place] [address] PCP - General 02/04/22
== END 2024-09-02 20:18 | disposition home or self-care (01) ==
LOC: ANHED 19:08
PROVIDERS: Physician Assistant; Emergency Provider Physician Assistant; PCP Internal Medicine
DX: R10.13 Epigastric pain (principal); I10 Essential (primary) hypertension; E78.5 Hyperlipidemia, unspecified; K40.90 Unilateral inguinal hernia, without obstruction or gangrene, not specified as recurrent; K42.9 Umbilical hernia without obstruction or gangrene; Z90.49 Acquired absence of other specified parts of digestive tract; Z79.02 Long term (current) use of antithrombotics/antiplatelets; Z79.899 Other long term (current) drug therapy; Z79.84 Long term (current) use of oral hypoglycemic drugs; I45.10 Unspecified right bundle-branch block
CPT/HCPCS: 36415; 74177; 80053; 81003; 83690; 84484; 85025; 93005; 96360; 99284; Q9967